=== PATIENT | female | born 1960 | race Caucasian/White ===

== ENCOUNTER 2020-01-20 21:00 | Inpatient (IN) ==
[2020-01-20] MEDS ORDERED: PROMETHAZINE 12.5 MG/50.5 ML BAG IV STA (22:36)
[2020-01-20 22:45] LABS: Hematocrit (blood only) 31.7 % (37-47); Hemoglobin 9.6 g/dL (12.0-16.0); Mean Corpuscular Hemoglobin 24.1 pg (25-34); Mean Corpuscular Hgb Conc 30.3 g/dL (32-36); Mean Corpuscular Volume 79.4 fL (80-100); Platelet Count 557 K/uL (130-400); RDW Coefficient of Variation 17.9 % (11.5-14.5); Red Blood Count 3.99 M/uL (4.2-5.4); White Blood Count 8.25 K/uL (4.8-10.8)
[2020-01-20] MEDS ORDERED: SODIUM CHLORIDE 0.9% 1000ML 1,000 ML IV SCH (22:45)
[2020-01-20 22:52] LABS: Albumin Level 3.1 gm/dl (3.4-5.0); BUN Creatinine Ratio 14.2 (10-20); Calcium 8.8 mg/dl (8.5-10.1); Creatinine Clr Calc Pharmacy 50.7 ml/min; Est GFR (African American) 54.3; Est GFR (Non-African American) 46.8; Potassium 3.8 mmol/L (3.5-5.1)
[2020-01-20 22:55] LABS: Albumin Globulin Ratio 0.7 (0.9-2); Globulin 4.3 gm/dl (2.5-4.0); Total Protein 7.4 gm/dl (6.4-8.2)
[2020-01-20 23:32] LABS: Immature Granulocytes # (auto) 0.07 K/uL (0.00-0.02); Immature Granulocytes % (auto) 0.8 %; Lymphocytes # (auto) 0.13 K/uL (1.2-3.4); Lymphocytes % (auto) 1.6 %; Monocytes # (auto) 0.06 K/uL (0.11-0.59); Monocytes % (auto) 0.7 %; Neutrophils # (auto) 7.99 K/uL (1.4-6.5); Neutrophils % (auto) 96.9 %; RBC Morphology Unremarkable
[2020-01-21] MEDS ORDERED: IOVERSOL 100ml IV ONE
[2020-01-21] MEDS ORDERED: SODIUM CHLORIDE 0.9% 1000ML 1,000 ML IV ONE (00:30)
[2020-01-21] MEDS ORDERED: cefTRIAXone SODIUM 2,000 MG/70 ML BAG IV STA (00:48)
[2020-01-21 00:52] LABS: Appearance Urine Cloudy (Clear); Bacteria Urine Automated 3+ (Negative); Bilirubin Urine Negative (Negative); Blood Urine 3+ (Negative); Color Urine Dark Yellow; Glucose Urine UA Negative (Negative); Ketones Urine Trace (Negative); Leukocyte Esterase Urine 3+ (Negative); Nitrite Urine Positive (Negative); Protein Urine 2+ (Negative); Specific Gravity Urine 1.015 (1.000-1.030); Urobilinogen Urine Negative (Negative); WBC Urine Automated >30 /hpf (0-5)
[2020-01-21 01:05] LABS: RBC Urine Automated >30 /hpf (0-4)
[2020-01-21 01:06] LABS: Cast Urine Automated 0 /lpf (0-5)
[2020-01-21] MEDS ORDERED: PROMETHAZINE 12.5 MG/50.5 ML NSS IV ONE (01:38)
--- NOTE | 2020-01-21 01:45 | Emergency Department Note ---
History of Present Illness General Chief complaint: Vomiting Stated complaint: VOMITING,PAINS IN BACK Source: patient and RN notes reviewed Mode of arrival: ambulatory Limitations: no limitations History of Present Illness Provider complaint: Vomiting, diarrhea, back pain Maximum Pain Intensity: 3 This patient is a 59-year-old female who presents emergency department with complaints of vomiting and diarrhea that began 1 day ago. The patient states she has had some sweats and chills. She has had some watery stools. She believes she is dehydrated because the urine has been dark. Patient denies any blood in the vomit or stools. She states she was tested for COVID approximately 2 weeks ago and was negative. Patient denies any chest pain, shortness of breath or cough. She does feel as though she is had a fever. Home Medications Home Medications Medication Instructions Recorded Confirmed Type No Known Home Medications 01/21/20 01/21/20 History Allergies Allergy/AdvReac Type Severity Reaction Status Date / Time ondansetron [From Zofran] AdvReac Unknown Vomiting Verified 01/31/19 08:15 Past Med/Surg History Medical History Endometrial thickening on ultrasound History of anesthesia reaction WITH GASTRIC BYPASS SURGERY, TOOK LONG TIME TO WAKE UP ( JULIÁN, 2011) History of chest pain October 10, 2018...chest pain, dizziness & nausea...rested and resolved - no re- occurence since History of high cholesterol History of kidney stones x1 History of varicella Pain, lower extremity "HIPS TO FEET HURTING" STARTED 1 YR AGO/WORSENING OVER LAST 2 MONTHS Post-menopausal bleeding Postmenopausal bleeding Surgical History History of colonoscopy History of eye surgery LASIK - BOTH History of gastric bypass History of tubal ligation History of wisdom tooth extraction S/P laparoscopic cholecystectomy Family History Other Family history of cancer Social History Smoking Status: Never smoker Hx Alcohol Use: No Preferred Language: Frisian Communication Ability: Effective 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 and A total of 10 systems reviewed and were otherwise negative Physical Exam Vital Signs Vital Signs - 24 hr 01/20/20 21:09 01/20/20 22:47 01/20/20 22:54 Temperature 37 C Temperature Source Oral Pulse Rate 91 H Pulse Rate [Finger] 91 H Respiratory Rate 18 18 Respiratory Effort / Characteristics Non-Labored Non-Labored Spontaneous Respiratory Depth Normal Normal Blood Pressure 119/61 Blood Pressure [Left Arm] 119/73 Blood Pressure Mean 80 Blood Pressure Mean [Left Arm] 88 Pulse Oximetry 100 97 97 Oxygen Delivery Method Room Air Room Air Room Air Sepsis Recent Fever Within 48 Hours No Sepsis New/Unexplained Change in Mental Status No Sepsis Action Taken by Nursing No Action Required 01/21/20 00:32 01/21/20 01:10 01/21/20 01:35 Temperature 38.5 C H Temperature Source Oral Pulse Rate Pulse Rate [Finger] 97 H 98 H Respiratory Rate 18 18 Respiratory Effort / Characteristics Non-Labored Spontaneous Non-Labored Spontaneous Respiratory Depth Normal Normal Blood Pressure Blood Pressure [Left Arm] 121/62 113/99 Blood Pressure Mean Blood Pressure Mean [Left Arm] 81 103 Pulse Oximetry 98 98 Oxygen Delivery Method Room Air Room Air Sepsis Recent Fever Within 48 Hours Sepsis New/Unexplained Change in Mental Status Sepsis Action Taken by Nursing 01/21/20 02:16 Temperature Temperature Source Pulse Rate 120 H Pulse Rate [Finger] Respiratory Rate 18 Respiratory Effort / Characteristics Respiratory Depth Blood Pressure 148/132 H Blood Pressure [Left Arm] Blood Pressure Mean Blood Pressure Mean [Left Arm] Pulse Oximetry 97 Oxygen Delivery Method Room Air Sepsis Recent Fever Within 48 Hours Sepsis New/Unexplained Change in Mental Status Sepsis Action Taken by Nursing Vital signs reviewed. General: Somewhat ill appearing 59 yo female, in no significant distress. HEENT: No scleral icterus, PERRLA, neck supple. Cardiovascular: Regular rate and rhythm, no extra sounds. Pulmonary: Clear to auscultation bilaterally, normal work of breathing. Abdomen: Soft, nontender, nondistended, positive bowel sounds. Musculoskeletal: Atraumatic, no peripheral edema. Neurologic: Patient awake alert and oriented x 3 Skin: Warm, dry, no rash Course Administered Medications Discontinued Medications Acetaminophen (Acetaminophen 1000 Mg/100 Ml Iv) Confirm Administered Dose 1,000 mg IV .STK-MED ONE Stop: 01/21/20 01:47 Last Admin: 01/21/20 01:49 Dose: 1,000 mg Documented by: [id number] Promethazine HCl (Phenergan) 12.5 mg in 50.5 mls @ 202 mls/hr IV NOW STA Stop: 01/20/20 22:50 Last Infusion: 01/20/20 23:01 Dose: 0 mls/hr Documented by: [id number] Admin: 01/20/20 22:46 Dose: 202 mls/hr Documented by: [id number] Sodium Chloride (Nss 1000ml) 1,000 mls @ 999 mls/hr IV .Q1H1M ARAM Stop: 01/20/20 23:45 Last Infusion: 01/20/20 23:51 Dose: 0 mls/hr Documented by: [id number] Admin: 01/20/20 22:46 Dose: 999 mls/hr Documented by: [id number] Sodium Chloride (Nss 1000ml) 1,000 mls @ 999 mls/hr IV .Q1H1M ONE Stop: 01/21/20 01:30 Last Admin: 01/21/20 00:49 Dose: 999 mls/hr Documented by: [id number] Ceftriaxone Sodium (Rocephin) 2,000 mg in 70 mls @ 140 mls/hr IV NOW STA Stop: 01/21/20 01:17 Last Infusion: 01/21/20 01:44 Dose: 0 mls/hr Documented by: [id number] Admin: 01/21/20 01:10 Dose: 140 mls/hr Documented by: [id number] Ioversol (Ioversol 100ml) 94 ml IV ONCE ONE Stop: 01/21/20 00:01 Last Admin: 01/21/20 00:00 Dose: 94 ml Documented by: [id number] Promethazine HCl (Promethazine 12.5 Mg/50.5 Ml Nss) Confirm Administered Dose 12.5 mg IV .STK-MED ONE Stop: 01/21/20 01:39 Last Admin: 01/21/20 01:45 Dose: 12.5 mg Documented by: [id number] Critical Care Time Critical Care Time: Yes I have personally spent greater than 42 minutes of critical care time in the direct management of this patient. This includes bedside care, interpretation of diagnostic studies, and testing, discussion with consultants, patient, and family members, and other required patient management activities. This 42 minutes is in excess of all separately billable procedures. Medical Decision Making Differential Diagnosis Differential diagnosis: Etiologies such as viral syndrome, otitis, pharyngitis, pneumonia, influenza, meningitis, urinary tract infection, septic arthritis, soft tissue infectious process, intra-abdominal process, sepsis, bacteremia, as well as others were entertained. Medical Records Attestation: I reviewed the patient's medical records. Home Medications Current Medication List: was personally reviewed by me Laboratory Data Attestation: I reviewed the patient's lab results. Result diagrams: 01/20/20 21:25 01/20/20 21:25 Lab Results 01/20/20 01/20/20 01/20/20 Range/Units 21:25 21:25 22:05 WBC 8.25 (4.8-10.8) K/uL RBC 3.99 L (4.2-5.4) M/uL Hgb 9.6 L (12.0-16.0) g/dL Hct 31.7 L (37-47) % MCV 79.4 L (80-100) fL MCH 24.1 L (25-34) pg MCHC 30.3 L (32-36) g/dL RDW Std Deviation 52.0 H (36.4-46.3) fL RDW Coeff of Mary 17.9 H (11.5-14.5) % Plt Count 557 H (130-400) K/uL MPV 10.0 (7.4-10.4) fL Immature Gran % (Auto) 0.8 % Neut % (Auto) 96.9 % Lymph % (Auto) 1.6 % Talbot % (Auto) 0.7 % Eos % (Auto) 0.0 % Baso % (Auto) 0.0 % Neut # (Auto) 7.99 H (1.4-6.5) K/uL Lymph # (Auto) 0.13 L (1.2-3.4) K/uL Talbot # (Auto) 0.06 L (0.11-0.59) K/uL Eos # (Auto) 0.00 (0-0.5) K/uL Baso # (Auto) 0.00 (0-0.2) K/uL Immature Gran # (Auto) 0.07 H (0.00-0.02) K/uL RBC Morphology Unremarkable Sodium 138 (136-145) mmol/L Potassium 3.8 (3.5-5.1) mmol/L Chloride 105 (98-107) mmol/L Carbon Dioxide 22 (21-32) mmol/L Anion Gap 11.0 (3-11) BUN 18 (7-18) mg/dl Creatinine 1.27 H (0.6-1.2) mg/dl Est Cr Clr Drug Dosing 50.7 ml/min Est GFR ( Amer) 54.3 Est GFR (Non-Af Amer) 46.8 BUN/Creatinine Ratio 14.2 (10-20) Glucose 109 H (70-99) mg/dl Lactate (0.4-2.0) mmol/L Calcium 8.8 (8.5-10.1) mg/dl Total Bilirubin 1.0 (0.2-1) mg/dl AST 59 H (15-37) U/L ALT 41 (12-78) U/L Alkaline Phosphatase 151 H (45-117) U/L Total Protein 7.4 (6.4-8.2) gm/dl Albumin 3.1 L (3.4-5.0) gm/dl Globulin 4.3 H (2.5-4.0) gm/dl Albumin/Globulin Ratio 0.7 L (0.9-2) Lipase 79 (73-393) U/L Urine Color Dark Yellow Urine Appearance Cloudy A (Clear) Urine pH 5.0 (4.5-7.5) Ur Specific [place] 1.015 (1.000-1.030) Urine Protein 2+ H (Negative) Urine Glucose (UA) Negative (Negative) Urine Ketones Trace H (Negative) Urine Blood 3+ H (Negative) Urine Nitrite Positive A (Negative) Urine Bilirubin Negative (Negative) Urine Urobilinogen Negative (Negative) Ur Leukocyte Esterase 3+ H (Negative) Urine WBC (Auto) >30 H (0-5) /hpf Urine RBC (Auto) >30 H (0-4) /hpf U Hyaline Cast (Auto) 0 (0-5) /lpf U Epithel Cells (Auto) 10-20 H (0-5) /lpf Urine Bacteria (Auto) 3+ H (Negative) Urine Yeast Not Reportable Stl C. diff Tox B Gene (Neg) COVID-19 Eval Order COVID-19 PCR (Negative) 01/21/20 01/21/20 01/21/20 Range/Units 00:40 00:40 01:05 WBC (4.8-10.8) K/uL RBC (4.2-5.4) M/uL Hgb (12.0-16.0) g/dL Hct (37-47) % MCV (80-100) fL MCH (25-34) pg MCHC (32-36) g/dL RDW Std Deviation (36.4-46.3) fL RDW Coeff of Mary (11.5-14.5) % Plt Count (130-400) K/uL MPV (7.4-10.4) fL Immature Gran % (Auto) % Neut % (Auto) % Lymph % (Auto) % Talbot % (Auto) % Eos % (Auto) % Baso % (Auto) % Neut # (Auto) (1.4-6.5) K/uL Lymph # (Auto) (1.2-3.4) K/uL Talbot # (Auto) (0.11-0.59) K/uL Eos # (Auto) (0-0.5) K/uL Baso # (Auto) (0-0.2) K/uL Immature Gran # (Auto) (0.00-0.02) K/uL RBC Morphology Sodium (136-145) mmol/L Potassium (3.5-5.1) mmol/L Chloride (98-107) mmol/L Carbon Dioxide (21-32) mmol/L Anion Gap (3-11) BUN (7-18) mg/dl Creatinine (0.6-1.2) mg/dl Est Cr Clr Drug Dosing ml/min Est GFR ( Amer) Est GFR (Non-Af Amer) BUN/Creatinine Ratio (10-20) Glucose (70-99) mg/dl Lactate 1.8 (0.4-2.0) mmol/L Calcium (8.5-10.1) mg/dl Total Bilirubin (0.2-1) mg/dl AST (15-37) U/L ALT (12-78) U/L Alkaline Phosphatase (45-117) U/L Total Protein (6.4-8.2) gm/dl Albumin (3.4-5.0) gm/dl Globulin (2.5-4.0) gm/dl Albumin/Globulin Ratio (0.9-2) Lipase (73-393) U/L Urine Color Urine Appearance (Clear) Urine pH (4.5-7.5) Ur Specific [place] (1.000-1.030) Urine Protein (Negative) Urine Glucose (UA) (Negative) Urine Ketones (Negative) Urine Blood (Negative) Urine Nitrite (Negative) Urine Bilirubin (Negative) Urine Urobilinogen (Negative) Ur Leukocyte Esterase (Negative) Urine WBC (Auto) (0-5) /hpf Urine RBC (Auto) (0-4) /hpf U Hyaline Cast (Auto) (0-5) /lpf U Epithel Cells (Auto) (0-5) /lpf Urine Bacteria (Auto) (Negative) Urine Yeast Stl C. diff Tox B Gene (Neg) COVID-19 Eval Order Covid19 Done at [facility] COVID-19 PCR NEGATIVE (Negative) 01/21/20 Range/Units 01:45 WBC (4.8-10.8) K/uL RBC (4.2-5.4) M/uL Hgb (12.0-16.0) g/dL Hct (37-47) % MCV (80-100) fL MCH (25-34) pg MCHC (32-36) g/dL RDW Std Deviation (36.4-46.3) fL RDW Coeff of Mary (11.5-14.5) % Plt Count (130-400) K/uL MPV (7.4-10.4) fL Immature Gran % (Auto) % Neut % (Auto) % Lymph % (Auto) % Talbot % (Auto) % Eos % (Auto) % Baso % (Auto) % Neut # (Auto) (1.4-6.5) K/uL Lymph # (Auto) (1.2-3.4) K/uL Talbot # (Auto) (0.11-0.59) K/uL Eos # (Auto) (0-0.5) K/uL Baso # (Auto) (0-0.2) K/uL Immature Gran # (Auto) (0.00-0.02) K/uL RBC Morphology Sodium (136-145) mmol/L Potassium (3.5-5.1) mmol/L Chloride (98-107) mmol/L Carbon Dioxide (21-32) mmol/L Anion Gap (3-11) BUN (7-18) mg/dl Creatinine (0.6-1.2) mg/dl Est Cr Clr Drug Dosing ml/min Est GFR ( Amer) Est GFR (Non-Af Amer) BUN/Creatinine Ratio (10-20) Glucose (70-99) mg/dl Lactate (0.4-2.0) mmol/L Calcium (8.5-10.1) mg/dl Total Bilirubin (0.2-1) mg/dl AST (15-37) U/L ALT (12-78) U/L Alkaline Phosphatase (45-117) U/L Total Protein (6.4-8.2) gm/dl Albumin (3.4-5.0) gm/dl Globulin (2.5-4.0) gm/dl Albumin/Globulin Ratio (0.9-2) Lipase (73-393) U/L Urine Color Urine Appearance (Clear) Urine pH (4.5-7.5) Ur Specific [place] (1.000-1.030) Urine Protein (Negative) Urine Glucose (UA) (Negative) Urine Ketones (Negative) Urine Blood (Negative) Urine Nitrite (Negative) Urine Bilirubin (Negative) Urine Urobilinogen (Negative) Ur Leukocyte Esterase (Negative) Urine WBC (Auto) (0-5) /hpf Urine RBC (Auto) (0-4) /hpf U Hyaline Cast (Auto) (0-5) /lpf U Epithel Cells (Auto) (0-5) /lpf Urine Bacteria (Auto) (Negative) Urine Yeast Stl C. diff Tox B Gene Negative Cdiff Gene (Neg) COVID-19 Eval Order COVID-19 PCR (Negative) Imaging Data Radiologist's Impression: CT ABDOMEN & PELVIS With Contrast: Comparison: 12/23/2008. Normal cardiac size. Mild posterior dependent atelectasis. Remainder of the lung bases are clear. Status post cholecystectomy otherwise unremarkable biliary system. Normal spleen, bilateral adrenal glands and visualized pancreas. Decompressed stomach with surgical clips suggestive of previous surgery. Mild to moderate hydronephrosis and hydroureter due to a stone seen at the right UV junction measuring 4.9 mm. There is a stone measuring 6.2 mm at the level of the renal pelvis with a second stone was seen within the lower pole of the left kidney measuring 5.5 mm. There are multiple left-sided peripelvic renal cysts versus extrarenal pelvis versus mild pelviectasis. No hydroureter on the left. Multiple loops of small bowel within the pelvis, largest distended up to 2.4 cm which may indicate localized ileus. Due to a adjacent small bowel loops with surgical clips noted, early signs of mild or partial obstruction cannot be entirely excluded. Distinct appendix is not visualized with no inflammation in the region of the cecum. Multiple surgical screws demonstrated within conglomerates of small bowel seen at the level of the pelvis. Normal aorta. Unremarkable bony structures. Unremarkable uterus and remainder of the pelvic structures for age. Radiologist: Irina Truong MD Blood Pressure Blood Pressure Findings: Normal blood pressure Blood Pressure Disposition: did not require urgent referral MDM Narrative This patient was evaluated and appeared to be in some discomfort. IV access was obtained and laboratory work was drawn. The patient was medicated with IV Phenergan 12.5 mg and hydrated with normal saline solution. An order for cardiac monitoring was placed and the patient was found to be in a normal sinus rhythm at 91 bpm. Patient's laboratory work reveals a normal WBC at 8.25. Lactate is 1.8. Blood cultures are pending. Patient continued to complain of some crampy mid abdominal discomfort. CT imaging was ordered and concerning for an obstructing 5 mm right UVJ stone. She was finally able to urinate after IV hydration and is found to have a UTI. 2 g of IV ceftriaxone were administered. The case was discussed with Dr. Montiel of urology who will evaluate the patient in the emergency department. Dr. Rangel of the hospitalist service will evaluate the patient for admission and further management. Patient is aware of the plan and agrees. Impression & Plan Hydronephrosis with renal and ureteral calculous obstruction, UTI (urinary tract infection), Fever Discharge Plan Visit Data Chief Complaint: Vomiting Stated Complaint: VOMITING,PAINS IN BACK ED Provider: Hilary Pulliam Discharge Problem: Hydronephrosis with renal and ureteral calculous obstruction, UTI (urinary tract infection), Fever Patient Disposition: Still a Patient Discharge Instructions Interventions: ED Discharge Assessment Last Done: 01/21/20 02:16
[2020-01-21] MEDS ORDERED: ACETAMINOPHEN 1000 MG/100 ML IV IV ONE (01:46)
--- NOTE | 2020-01-21 02:08 | Urology Consultation ---
Date of Consultation January 21, 2020 Assessment & Plan (1) Nephrolithiasis: (2) Sepsis: Obstructing right ureteral calculus with a clinical picture consistent with sepsis Plan to immediately progressed to the operating room for a right ureteral stent placement and cystoscopy She has numerous other issues currently as well COVID testing pending currently Empiric antibiotic coverage IV hydration Admission to the hospital service after stent placement History of Present Illness History of Present Illness Acutely ill 59-year-old female evaluated in the emergency room She presented earlier in the evening with a variety of complaints This has progressed since her admission to what appears to sepsis She is visibly shaking she has had diarrhea and vomiting She has abdominal pain objective measurements have shown a fever of 38.[address] showing a distal right ureteral calculus with moderate hydronephrosis, several renal stones UA showing signs of active infection She additionally has a COVID test which is currently pendingof note, she is saturating 98% on room air and not manifesting a lot of pulmonary symptoms She has a history of kidney stones but no prior surgeries for kidney stones Allergies Allergy/AdvReac Type Severity Reaction Status Date / Time ondansetron [From Zofran] AdvReac Unknown Vomiting Verified 01/31/19 08:15 Patient History Medical History Endometrial thickening on ultrasound History of anesthesia reaction WITH GASTRIC BYPASS SURGERY, TOOK LONG TIME TO WAKE UP ( JULIÁN, 2011) History of chest pain October 10, 2018...chest pain, dizziness & nausea...rested and resolved - no re- occurence since History of high cholesterol History of kidney stones x1 History of varicella Pain, lower extremity "HIPS TO FEET HURTING" STARTED 1 YR AGO/WORSENING OVER LAST 2 MONTHS Post-menopausal bleeding Postmenopausal bleeding Surgical History History of colonoscopy History of eye surgery LASIK - BOTH History of gastric bypass History of tubal ligation History of wisdom tooth extraction S/P laparoscopic cholecystectomy Family History Other Family history of cancer Social History Smoking Status: Never smoker Hx Alcohol Use: No Preferred Language: Bangladeshi Communication Ability: 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 Household Appliances Required: No Beliefs That Will Affect Care: None Current Living Situation: Alone Feels Safe at Home: Yes Assistive Devices: None Review of Systems Constitutional: + fever, + chills, + fatigue and + weakness Eyes: no worsening vision Ear, Nose, Mouth, Throat: no facial pain and no pain with swallowing Respiratory: no cough and no dyspnea Cardiovascular: no chest pain and no palpitations Gastrointestinal: + abdominal pain, + nausea, + vomiting and + diarrhea/loose stools Genitourinary: + dysuria and + urinary frequency; no difficulty urinating and no hematuria Musculoskeletal: + back pain Integumentary: no rash and no urticaria Neurologic: no gait abnormality and no unsteadiness Psychiatric: no behavioral changes and no depression Endocrine: no fatigue Physical Exam Constitutional: + acute distress and + ill appearing Acutely uncomfortable appearing with severe rigors Neck: neck nontender Respiratory: normal respiratory effort; no respiratory distress and does not use accessory muscles Cardiovascular: Rate/Rhythm: + tachycardic Vessels: radial pulses present Extremities: no edema Gastrointestinal (Abdomen): Inspection/Auscultation: abdomen normal to inspection Percussion/Palpation: + abdomen tender and abdomen soft; no guarding Musculoskeletal: Head/Neck/Chest: normocephalic and head atraumatic Extremities: extremities normal to inspection Skin: no rashes and no lesions Trauma: no evidence of skin trauma Neurologic: awake; not obtunded Speech / Cognition: normal speech Motor/Sensory: no tremor Psychiatric: Orientation: alert and oriented x 3 Lymphatic: no lymphadenopathy Results & Data ([facility]) Vital Signs (Past 12 Hours) Vital Signs Temp Pulse Pulse Resp BP BP Pulse Ox 01/21/20 01:10 38.5 C H 01/21/20 00:32 97 H 18 121/62 98 01/20/20 22:54 91 H 18 119/73 97 01/20/20 22:47 97 01/20/20 21:09 37 C 91 H 18 119/61 100 PG Care Time/CCT Total # of Minutes Spent Total Time Spent with Patient: Total time spent is greater than 50% in coordination of care (as documented) at patient's floor/unit and/or counseling patient: Coding Level of Care Code 95186 Office/OBS Consult Lvl 4 Diagnoses Nephrolithiasis N20.0 Sepsis A41.9
[2020-01-21] MEDS ORDERED: ATROPINE SULFATE 0.1 MG/ML 10ML SYR IV PRN (02:20)
[2020-01-21] MEDS ORDERED: fentaNYL citrate 100 MCG/2 ML VIAL IV PRN (02:20)
[2020-01-21] MEDS ORDERED: ePHEDrine sulfate 50 MG/ML AMP IV PRN (02:20)
[2020-01-21] MEDS ORDERED: MIDAZOLAM HCL 1 MG/ML 2ML VIAL ONE (02:26)
[2020-01-21] MEDS ORDERED: fentaNYL citrate 100 MCG/2 ML VIAL ONE (02:26)
--- NOTE | 2020-01-21 02:34 | Anesthesiology Consultation ---
Date of Service January 21, 2020 Assessment & Plan (1) Encounter for pre-operative examination: Chart Review Chart Review: Acceptable Risk for Surgery Consults Requested none ASA [id number] Proposed Anesthesia Anesthesia Type: MAC Risk / Benefits Reviewed With: PT / POA / Parent / Guardian, Accepts Plan and Informed Consent Obtained History Surgery Operation Date: 01/21/20 03:00 Proposed Procedures p Cystoscopy - Sukhdeep Montiel MD Height/Weight Height: 5 ft 1 in Weight: 92.5 kg Allergies Allergy/AdvReac Type Severity Reaction Status Date / Time ondansetron [From Zofran] AdvReac Unknown Vomiting Verified 01/31/19 08:15 Medications Home Medications Medication Instructions Recorded Confirmed Last Taken No Known Home Medications 01/21/20 01/21/20 Unknown NPO Date Last Intake of Fluids: 01/20/20 Time Last Intake of Fluids: 11:00 Date Last Intake of Solids: 01/20/20 Time Last Intake of Solids: 17:00 Past Medical History Medical History Endometrial thickening on ultrasound History of anesthesia reaction WITH GASTRIC BYPASS SURGERY, TOOK LONG TIME TO WAKE UP ( JULIÁN, 2011) History of chest pain October 10, 2018...chest pain, dizziness & nausea...rested and resolved - no re- occurence since History of high cholesterol History of kidney stones x1 History of varicella Pain, lower extremity "HIPS TO FEET HURTING" STARTED 1 YR AGO/WORSENING OVER LAST 2 MONTHS Post-menopausal bleeding Postmenopausal bleeding Exercise / Class Metabolic Activity II 4-5 Yardwork/Stairs/Walk up hill Past Family History Family History Other Family history of cancer Past Surgical History Surgical History History of colonoscopy History of eye surgery LASIK - BOTH History of gastric bypass History of tubal ligation History of wisdom tooth extraction S/P laparoscopic cholecystectomy Past Anesthesia History No Hx of Anesthesia Complications and No Family Hx of Anesthesia Complications History of PONV No Hx of PONV and No Hx of Motion Sickness Social History Smoking Status: Never smoker Hx Alcohol Use: No Alcohol type: wine alcohol intake frequency: other substance use type: does not use Physical Exam Vital Signs Last Vital Signs Temp 101.3 F H 01/21/20 01:10 Pulse 120 H 01/21/20 02:16 Resp 18 01/21/20 02:16 BP 148/132 H 01/21/20 02:16 Pulse Ox 97 01/21/20 02:16 ENMT Mouth: + loose teeth Thyromental Distance: > or= 3.5 Finger Breadths Mallampati Class: II Neck normal visual inspection Respiratory normal respiratory effort Auscultation: lungs clear to auscultation bilaterally Cardiovascular Rate/Rhythm: regular rhythm and + tachycardic Testing Laboratory Results 01/20/20 21:25 01/20/20 21:25 Urine Color Dark Yellow 01/20/20 22:05 Urine Appearance Cloudy (Clear) A 01/20/20 22:05 Urine pH 5.0 (4.5-7.5) 01/20/20 22:05 Ur Specific [place] 1.015 (1.000-1.030) 01/20/20 22:05 Urine Protein 2+ (Negative) H 01/20/20 22:05 Urine Glucose (UA) Negative (Negative) 01/20/20 22:05 Urine Ketones Trace (Negative) H 01/20/20 22:05 Urine Nitrite Positive (Negative) A 01/20/20 22:05 Ur Leukocyte Esterase 3+ (Negative) H 01/20/20 22:05 Urine WBC (Auto) >30 /hpf (0-5) H 01/20/20 22:05 Urine RBC (Auto) >30 /hpf (0-4) H 01/20/20 22:05 U Hyaline Cast (Auto) 0 /lpf (0-5) 01/20/20 22:05 U Epithel Cells (Auto) 10-20 /lpf (0-5) H 01/20/20 22:05 Urine Bacteria (Auto) 3+ (Negative) H 01/20/20 22:05
--- NOTE | 2020-01-21 03:08 | Operative Report ---
PG Post Operative Report Pre & Post Diagnosis Operation Date: 01/21/20 03:00 Pre-Op Diagnosis: Obstructing Right Ureteral Calculus; Sepsis Post-Op Diagnosis: Obstructing Right Ureteral Calculus; Sepsis I identified the patient and participated in the time-out.: Yes Procedure Operation Date: 01/21/20 03:00 Actual Procedures p Cystoscopy, Right Ureteral Stent Placement, Stone Extraction(Right) - Sukhdeep Montiel MD Surgeon Petar Montiel MD Building Drafter none Estimated Blood Loss 0 Findings Consistent with Post-Op Diagnosis Specimens stone for chemical analysis Description of Procedure The patient was identified in the preoperative holding area, appropriate informed consents were reviewed and completed and the patient was transferred to the operative suite. Upon arrival, appropriate antibiotics and anesthesia were administered and the patient was placed in dorsal lithotomy position and prepped and draped in sterile fashion. To begin the case I passed a 22 [place] cystoscope with 30 degree lens. Immediately upon entry into the bladder I drained a significant amount of dark brown cloudy urine. I irrigated the bladder multiple times to allow better visualization. After clearing the urine, the bladder was inspected. There were no gross abnormalities appreciated. She had some mounding of the right distal ureter and UO. No tumors or stones were appreciated within the bladder. I intubated the right UO with a sensor wire and a 5 [place] open-ended catheter and in doing so freed a stone that was impacted just behind the UO. The stone actually popped into the bladder and was easily visualized. I continued to place a 6 [place] by 24 cm double-J stent seeing a good curl in the kidney as wel l as the bladder. I then irrigated the stone out of the bladder and passed off the table for chemical analysis. The case was concluded and she was reversed of anesthesia and taken to the recovery area in stable condition. There were no complications. I attest to the content of the Intraoperative Record and any orders documented therein. Any exceptions are noted below.
--- NOTE | 2020-01-21 03:37 | Anesthesiology Progress Note ---
Date of Service January 21, 2020 Anesthesia Post Procedure Vital Signs Vital Signs: Temp Pulse Pulse Resp BP BP Pulse Ox 01/21/20 03:20 103 H 32 H 136/83 93 01/21/20 03:18 106 H 31 H 154/82 H 93 01/21/20 03:15 103 H 31 H 141/85 H 93 01/21/20 03:10 106 H 31 H 154/82 H 93 01/21/20 03:05 103.1 F H 112 H 29 H 175/87 H 94 01/21/20 02:16 120 H 18 148/132 H 97 01/21/20 01:35 98 H 18 113/99 98 01/21/20 01:10 101.3 F H 01/21/20 00:32 97 H 18 121/62 98 01/20/20 22:54 91 H 18 119/73 97 01/20/20 22:47 97 01/20/20 21:09 98.6 F 91 H 18 119/61 100 Pain Intensity Abdomen: Pain Intensity: 5 Transfer of Care Handoff Completed per policy Notes Mental Status: alert / awake / arousable and participated in evaluation Patient Amnestic to Procedure: Yes Nausea / Vomiting: adequately controlled Pain: adequately controlled Airway Patency, RR, SpO2: stable & adequate BP & HR: stable & adequate Hydration State: stable & adequate Anesthetic Complications: no major complications apparent and Pt Satisfied with anesthetic care
[2020-01-21] MEDS ORDERED: NITROGLYCERIN SL 0.4 MG/TAB TAB SL PRN (03:59)
[2020-01-21] MEDS ORDERED: PIPERACILL/TAZOBAC CONSULT ACTIVE PRN (03:59)
[2020-01-21] MEDS ORDERED: PIPERACILLIN/TAZOBACTAM 4.5 GM in DEXTROSE 5% 100 ML IV ONE (04:15)
[2020-01-21] MEDS: SODIUM CHLORIDE 0.9% 1000ML 1,000 ML IV SCH ×3 (04:17→21:01)
--- NOTE | 2020-01-21 06:24 | History and Physical Report ---
DATE OF ADMISSION: 01/21/2020 CHIEF COMPLAINT: Sepsis, obstructive kidney stone, UTI HISTORY OF PRESENT ILLNESS: This is a 59-year-old female with past medical history significant for status post gastric bypass surgery for obesity, family history of diabetes, comes because of nausea, vomiting, abdominal pain going for about 1 day. She had several episodes vomiting and diarrhea in the ER, later she had a temp spike. There is no leukocytosis, but there is a lymphopenia. Lactate was normal at 1.8. Her urine came as positive leukocyte esterase, positive nitrate and +[address] scan of the abdomen and pelvis showed [id number] hydronephrosis and hydroureter due to stones in the right UV junction measuring 4.9 mm and stones on the left kidney. The patient is very shaky and having lot of chills when I saw the patient and she was not able to answer most of the questions. Already Urology was called by the ER and Dr. Montiel came to take her to the OR. The patient says no loss of sense of smell or taste. May be has some runny nose. She has some dry cough in the ER. Denies any shortness of breath. Denies any chest pain. Complains of abdominal pain. No swelling in the legs seen. Ambulated okay in the ER. ALLERGIES: ZOFRAN. PAST MEDICAL HISTORY: As mentioned above. PAST SURGICAL HISTORY: Colonoscopy, EGD, laparoscopic procedure of liver, laparoscopic gastric bypass surgery, laparoscopic cholecystectomy, ligation of oviducts. MEDICATIONS: As per the [facility], she is on meclizine 25 mg p.o. t.i.d. p.r.n., vitamin B12 1000 mcg injections every 30 days, Caltrate plus vitamin D 1 tablet b.i.d., Flintstones once daily. FAMILY HISTORY: Significant for mother had diabetes. Father had heart disorder. Daughter has ovarian cancer. SOCIAL HISTORY: No smoking. Alcohol occasional. No drug use. REVIEW OF SYSTEMS: As per HPI, could not get to complete review of systems since the patient seems to be very shaky and chills. Somewhat lethargic. PHYSICAL EXAMINATION: VITAL SIGNS: Temperature T-max 37.5, pulse 103, respiratory rate in 20s and 30s, blood pressure 136/83, oxygen 93% on room air. HEENT: Pupils equal, round, reactive to light. NECK: No neck masses seen. CARDIOVASCULAR: S1, S2 heard. Tachycardia. No murmurs. RESPIRATORY SYSTEM: Normal AP diameter. No accessory muscle use. No wheezing, no crackles. ABDOMEN: Soft, bowel sounds present. No distention, no guarding. CENTRAL NERVOUS SYSTEM: The patient is alert and awake. Obeys commands. Ambulated to the ER okay. Moves extremities. EXTREMITIES: No edema, no erythema seen. LABORATORY DATA: WBC 8.25, hemoglobin 9.6, hematocrit 31.7, platelets 557. Sodium 138, potassium 3.8, chloride 105, bicarbonate 22, BUN 18, creatinine 1.27, serum glucose 109, lactate 1.8, calcium 8.8, total bilirubin 1, AST 15, ALT 41, alkaline phosphatase 151, lipase 79. Urinalysis positive for leukocyte esterase, +1 nitrite, +3 bacteria. COVID-19 PCR negative. Stool for C. diff negative. IMAGING: CT of abdomen and pelvis shows obstructing right UVJ junction stone at 4.9 mm on the preliminary report. ASSESSMENT AND PLAN: This is a 59-year-old female who presents with sepsis from obstructing kidney stone. 1. Sepsis from obstructing right UVJ kidney stone. The patient is taken emergently to the OR by the Urology. The patient was given Rocephin in the ER. We will continue with IV fluids, IV Zosyn. Follow the cultures and closely monitor. The patient was tested COVID 2 weeks ago and its negative. 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 COVID test was done in [facility] and came back negative. Stool for C. diff was also negative, most likely symptoms could be from the sepsis and from the urinary tract infection. We will closely monitor. 2. History of gastric bypass surgery. Follow up with the PCP. 3. Anemia and history of gastric bypass surgery. We will check for vitamin B12 and folate levels, iron studies and stool for Hemoccult and follow the labs. Dvt px scds. Disposition To be determined. MTDD
--- NOTE | 2020-01-21 07:03 | CT Scan Report ---
CT OF THE ABDOMEN AND PELVIS WITH CONTRAST CLINICAL HISTORY: Vomiting and diarrhea. Right upper quadrant pain. COMPARISON STUDY: CT of the abdomen and pelvis December 23, 2018. Pelvic ultrasound November 06, 2018. TECHNIQUE: Following IV administration of 94 mL of Optiray-320, axial images of the abdomen and pelvi s were obtained from the lung bases to the proximal femurs. Images were reviewed in the axial, sagitt al, and coronal planes. IV contrast was administered without complication. Automated exposure contro l was utilized for the study. A dose lowering technique was utilized adhering to the principles of A DAHIANA. CT DOSE: 910.63 mGy.cm FINDINGS: A 5 mm distal right ureteral calculus results in moderate right hydroureteronephrosis. The right nephrogram is delayed. Note is made of an 8 mm calcification within the left renal sinus. This favors a nonobstructing urinary calculus. There is an additional 4 mm left lower pole renal calculus. Hypodensities within left renal sinus favor parapelvic cysts. Hydronephrosis is considered less like ly. There is no evidence for a bowel obstruction status post Pascual-en-Y gastric bypass. The liver, spl een, adrenal glands and pancreas are unremarkable. Caliber of the common bile duct is at the upper li mits of normal following cholecystectomy. There is no lymphadenopathy. There is no ascites. There are no suspicious osseous lesions. IMPRESSION: 1. 5 mm distal right ureteral calculus which results in moderate hydroureteronephrosis and a delayed nephrogram. 2. Hypodensities within left renal sinus which favor parapelvic cysts. Hydronephrosis is considered l ess likely. An 8 mm calcification within the left renal sinus which is indeterminate but favors a non obstructing calculus. 4 mm left lower pole renal calculus. ACT 112: Negative or not required by law. Electronically signed by: Karsten Davies M.D. 01/21/2020 7:02 AM
--- NOTE | 2020-01-21 07:32 | Urology Progress Note ---
Date of Service January 21, 2020 Assessment & Plan (1) Right ureteral stone: 59 year-old female patient admitted with sepsis secondary to UTI and obstructing 5 mm right distal ureteral stone. -Patient status post emergent cystoscopy, right ureteral stent placement, and stone extraction by Dr. Montiel. -She is clinically progressing post procedure. -Labs reviewed, mild increase in creatinine and white count, continue to monitor. -Urine and blood cultures pending, await results. -Continue with antibiotic therapy and supportive care. Recommend total of 7-10 days antibiotic therapy based on culture results. -Okay to advance diet. -Will continue to follow while inpatient. Subjective Patient status post emergent cystoscopy overnight, right ureteral stent placement, and stone extraction by Dr. Montiel. Since procedure, patient feels "much better". Denies subjective fevers or chills since procedure. Denies nausea or vomiting. No flank or abdominal pain, does note a headache. She is unsure if she has hematuria. Does note mild urinary frequency, no urgency. She remains NPO. Chart review: Temperature this morning 37.8 Blood pressures stable Wbc 12.24 (previously 8.25) Hgb 8.0 (previously 9.6) Creatinine 1.52 (previously 1.27) Urine and blood cultures pending, currently on IV Zosyn. Denies additional urologic concerns today. Review of Systems Constitutional: as per Subjective / HPI; no chills Gastrointestinal: as per Subjective / HPI; no nausea and no vomiting Genitourinary: as per Subjective / HPI Physical Exam Constitutional: well developed and well nourished; no acute distress and not ill appearing Respiratory: normal respiratory effort and able to speak in complete sentences; no respiratory distress and no audible wheezes Gastrointestinal (Abdomen): Inspection/Auscultation: abdomen normal to inspection; abdomen not distended Percussion/Palpation: abdomen soft; abdomen nontender and no guarding Psychiatric: Orientation: alert, oriented x 3 and cooperative Affect: euthymic affect Genitourinary: no CVA tenderness Results & Data ([facility]) Vital Signs (Past 12 Hours) Vital Signs Temp Pulse Pulse Resp BP BP Pulse Ox 01/21/20 06:17 37.8 C H 100 H 16 100/63 93 01/21/20 04:54 36.7 C 101 H 22 104/67 94 01/21/20 04:00 38.2 C H 109 H 18 107/71 93 01/21/20 03:40 109 H 33 H 132/72 93 01/21/20 03:20 103 H 32 H 136/83 93 01/21/20 03:18 106 H 31 H 154/82 H 93 01/21/20 03:15 103 H 31 H 141/85 H 93 01/21/20 03:10 106 H 31 H 154/82 H 93 01/21/20 03:05 39.5 C H 112 H 29 H 175/87 H 94 01/21/20 02:16 120 H 18 148/132 H 97 01/21/20 01:35 98 H 18 113/99 98 01/21/20 01:10 38.5 C H 01/21/20 00:32 97 H 18 121/62 98 01/20/20 22:54 91 H 18 119/73 97 01/20/20 22:47 97 01/20/20 21:09 37 C 91 H 18 119/61 100 PG Care Time/CCT Total # of Minutes Spent Total Time Spent with Patient: Total time spent is greater than 50% in coordination of care (as documented) at patient's floor/unit and/or counseling patient: Coding Level of Care Code 17583 Subseq Hosp Care Lvl 2 Diagnoses Right ureteral stone N20.1
[2020-01-21 07:34] LABS: Mean Corpuscular Hemoglobin 24.1 pg (25-34); Mean Corpuscular Hgb Conc 30.8 g/dL (32-36); Mean Corpuscular Volume 78.3 fL (80-100); Mean Platelet Volume 9.8 fL (7.4-10.4); Platelet Count 336 K/uL (130-400); RDW Standard Deviation 51.5 fL (36.4-46.3); Red Blood Count 3.32 M/uL (4.2-5.4); White Blood Count 12.24 K/uL (4.8-10.8)
[2020-01-21 08:02] LABS: BUN Creatinine Ratio 13.7 (10-20); Calcium 7.9 mg/dl (8.5-10.1); Creatinine Clr Calc Pharmacy 41.6 ml/min; Est GFR (African American) 43.7; Est GFR (Non-African American) 37.7; Magnesium 1.5 mg/dl (1.8-2.4); Potassium 3.3 mmol/L (3.5-5.1)
[2020-01-21 08:07] LABS: Immature Granulocytes # (auto) 0.22 K/uL (0.00-0.02); Immature Granulocytes % (auto) 1.8 %; Lymphocytes # (auto) 0.26 K/uL (1.2-3.4); Lymphocytes % (auto) 2.1 %; Monocytes # (auto) 0.46 K/uL (0.11-0.59); Monocytes % (auto) 3.8 %; Neutrophils % (auto) 92.3 %; Toxic Vacuolation 1+
--- NOTE | 2020-01-21 08:09 | Fluoroscopy Report ---
REYNA LOZANO CLINICAL HISTORY: RT STENT PLACEMENT COMPARISON STUDY: CT of the abdomen and pelvis January 21, 2020. FLUOROSCOPY TIME: 4.1 seconds. FLUOROSCOPIC IMAGES: 1 FINDINGS: Fluoroscopy was provided during right retrograde exam. There is contrast within both collec ting systems from prior contrast enhanced CT. There is right collecting system dilatation. IMPRESSION: Fluoroscopy provided during right retrograde exam. ACT 112: Negative or not required by law. Electronically signed by: Karsten Davies M.D. 01/21/2020 8:08 AM
[2020-01-21] MEDS ORDERED: POTASSIUM CHLORIDE 20 MEQ TABCR PO ONE (09:00)
[2020-01-21] MEDS: MAGNESIUM SULFATE / D5W 1 GM/100 ML BAG IV SCH ×2 (09:26→12:47)
[2020-01-21] MEDS: POTASSIUM CHLORIDE / WTR 10 MEQ/100 ML PLCT IV SCH ×4 (09:26→12:45)
[2020-01-21 10:23] LABS: Folate (Folic Acid) 5.55 ng/ml (>5.38); Vitamin B12 > 2000 pg/ml (211-911)
[2020-01-21] MEDS: PIPERACILLIN/TAZOBACTAM 4.5 GM in DEXTROSE 5% 100 ML IV SCH ×2 (10:24→18:38)
[2020-01-21 12:42] LABS: Ferritin 33.1 ng/ml (8-388)
--- NOTE | 2020-01-21 15:24 | Hospitalist Progress Note ---
Date of Service January 21, 2020 Assessment & Plan (1) Sepsis: (2) Bacteremia: (3) Right ureteral stone: 59-year-old female with history of gastric bypass for obesity, presenting with fever, UTI. Status post cystoscopy with stone extraction 01/21/2020 Fever improving, white count up to 12.2 Blood cultures gram-negative bacilli x2 bottles Urine culture pending Continue Zosyn Follow-up cultures Acute renal failure, likely secondary to obstructive uropathy, sepsis Hopefully with stone extraction, treatment of sepsis, kidney function will start to improve Continue IV NSS Monitor BUN/creatinine Iron deficiency anemia Iron level 6 Vitamin B12 and folate normal Start ferrous sulfate 325 twice daily Check fecal occult blood test Monitor hemoglobin History of gastric bypass surgery Presently anemic May need GI consultation if fecal blood test is negative DVT prophylaxis SCDs for now in light of possible GI bleed Disposition Lives at home with family Anticipate discharge to home when medically stable Admission and Anticipated Discharge Date Admission Date: January 21, 2020 Subjective Follow-up for sepsis, UTI, ureteral stone Status post cystoscopy with removal of stone ureteral stone this morning Resting in bed, awake and alert, oriented x3, very pleasant Patient's family member at the bedside visiting Patient reports that she feels improved compared to admission Still feeling weak but fever/chills subsided, no nausea or vomiting so far, still having 2-3 loose bowel movements this morning, nonbloody No abdominal pain Denies chest pain, palpitations, shortness of breath No other symptoms Review of Systems Review of Systems: All systems reviewed & are unremarkable except as noted in Subjective Physical Exam Physical Exam: General- oriented x 3, not in distress, speaks in sentences with no effort or accessory muscle use Head- atraumatic Eyes- PERRL, EOMI, anicteric ENT- oropharynx clear Neck- supple, no JVD, no adenopathy, no thyromegaly; carotids +2/2, no bruits appreciated Lungs- clear to auscultation bilaterally, no rales/wheezes Heart- normal rate, regular rhythm; no murmur, no gallop, no rub appreciated Abdomen- normal bowel sounds, nondistended, soft, nontender, no masses or hepatosplenomegaly Extremities- no pretibial edema, no calf tenderness; peripheral pulses intact Neuro- alert, oriented x 3; CN 2-12 grossly intact; motor 5/5 bilaterally;sensation 100% on all extremities; no other gross focal neurologic deficits Skin- warm & dry Results & Data Results & Data ([facility]) Vital Signs (Past 12 Hours) Vital Signs Temp Pulse Pulse Resp BP Pulse Ox 01/21/20 10:52 37.1 C 78 18 93/59 L 97 01/21/20 07:00 102 H 01/21/20 06:17 37.8 C H 100 H 16 100/63 93 01/21/20 04:54 36.7 C 101 H 22 104/67 94 01/21/20 04:00 38.2 C H 109 H 18 107/71 93 01/21/20 03:40 109 H 33 H 132/72 93 Laboratory Results Laboratory Results - last 24 hr 01/20/20 01/20/20 01/20/20 21:25 21:25 22:05 WBC 8.25 RBC 3.99 L Hgb 9.6 L Hct 31.7 L MCV 79.4 L MCH 24.1 L MCHC 30.3 L RDW Std Deviation 52.0 H RDW Coeff of Mary 17.9 H Plt Count 557 H MPV 10.0 Immature Gran % (Auto) 0.8 Neut % (Auto) 96.9 Lymph % (Auto) 1.6 [place] % (Auto) 0.7 Eos % (Auto) 0.0 Baso % (Auto) 0.0 Neut # (Auto) 7.99 H Lymph # (Auto) 0.13 L [place] # (Auto) 0.06 L Eos # (Auto) 0.00 Baso # (Auto) 0.00 Immature Gran # (Auto) 0.07 H Toxic Vacuolation RBC Morphology Unremarkable Sodium 138 Potassium 3.8 Chloride 105 Carbon Dioxide 22 Anion Gap 11.0 BUN 18 Creatinine 1.27 H Est Cr Clr Drug Dosing 50.7 Est GFR ( Amer) 54.3 Est GFR (Non-Af Amer) 46.8 BUN/Creatinine Ratio 14.2 Glucose 109 H Lactate Calcium 8.8 Magnesium Iron TIBC Ferritin Total Bilirubin 1.0 AST 59 H ALT 41 Alkaline Phosphatase 151 H Total Protein 7.4 Albumin 3.1 L Globulin 4.3 H Albumin/Globulin Ratio 0.7 L Lipase 79 Vitamin B12 Folate Urine Color Dark Yellow Urine Appearance Cloudy A Urine pH 5.0 Ur Specific [place] 1.015 Urine Protein 2+ H Urine Glucose (UA) Negative Urine Ketones Trace H Urine Blood 3+ H Urine Nitrite Positive A Urine Bilirubin Negative Urine Urobilinogen Negative Ur Leukocyte Esterase 3+ H Urine WBC (Auto) >30 H Urine RBC (Auto) >30 H U Hyaline Cast (Auto) 0 U Epithel Cells (Auto) 10-20 H Urine Bacteria (Auto) 3+ H Urine Yeast Not Reportable Stl C. diff Tox B Gene Stone Source Stone Weight Stone Composition Stone Composition 2 COVID-19 Eval Order COVID-19 PCR 01/21/20 01/21/20 01/21/20 00:40 00:40 01:05 WBC RBC Hgb Hct MCV MCH MCHC RDW Std Deviation RDW Coeff of Mary Plt Count MPV Immature Gran % (Auto) Neut % (Auto) Lymph % (Auto) [place] % (Auto) Eos % (Auto) Baso % (Auto) Neut # (Auto) Lymph # (Auto) [place] # (Auto) Eos # (Auto) Baso # (Auto) Immature Gran # (Auto) Toxic Vacuolation RBC Morphology Sodium Potassium Chloride Carbon Dioxide Anion Gap BUN Creatinine Est Cr Clr Drug Dosing Est GFR ( Amer) Est GFR (Non-Af Amer) BUN/Creatinine Ratio Glucose Lactate 1.8 Calcium Magnesium Iron TIBC Ferritin Total Bilirubin AST ALT Alkaline Phosphatase Total Protein Albumin Globulin Albumin/Globulin Ratio Lipase Vitamin B12 Folate Urine Color Urine Appearance Urine pH Ur Specific [place] Urine Protein Urine Glucose (UA) Urine Ketones Urine Blood Urine Nitrite Urine Bilirubin Urine Urobilinogen Ur Leukocyte Esterase Urine WBC (Auto) Urine RBC (Auto) U Hyaline Cast (Auto) U Epithel Cells (Auto) Urine Bacteria (Auto) Urine Yeast Stl C. diff Tox B Gene Stone Source Stone Weight Stone Composition Stone Composition 2 COVID-19 Eval Order Covid19 Done at [facility] COVID-19 PCR NEGATIVE 01/21/20 01/21/20 01/21/20 01:45 03:01 06:53 WBC 12.24 H RBC 3.32 L Hgb 8.0 L Hct 26.0 L MCV 78.3 L MCH 24.1 L MCHC 30.8 L RDW Std Deviation 51.5 H RDW Coeff of Mary 18.0 H Plt Count 336 MPV 9.8 Immature Gran % (Auto) 1.8 Neut % (Auto) 92.3 Lymph % (Auto) 2.1 [place] % (Auto) 3.8 Eos % (Auto) 0.0 Baso % (Auto) 0.0 Neut # (Auto) 11.30 H Lymph # (Auto) 0.26 L [place] # (Auto) 0.46 Eos # (Auto) 0.00 Baso # (Auto) 0.00 Immature Gran # (Auto) 0.22 H Toxic Vacuolation 1+ RBC Morphology Sodium Potassium Chloride Carbon Dioxide Anion Gap BUN Creatinine Est Cr Clr Drug Dosing Est GFR ( Amer) Est GFR (Non-Af Amer) BUN/Creatinine Ratio Glucose Lactate Calcium Magnesium Iron TIBC Ferritin Total Bilirubin AST ALT Alkaline Phosphatase Total Protein Albumin Globulin Albumin/Globulin Ratio Lipase Vitamin B12 Folate Urine Color Urine Appearance Urine pH Ur Specific [place] Urine Protein Urine Glucose (UA) Urine Ketones Urine Blood Urine Nitrite Urine Bilirubin Urine Urobilinogen Ur Leukocyte Esterase Urine WBC (Auto) Urine RBC (Auto) U Hyaline Cast (Auto) U Epithel Cells (Auto) Urine Bacteria (Auto) Urine Yeast Stl C. diff Tox B Gene Negative Cdiff Gene Stone Source Pending Stone Weight Pending Stone Composition Pending Stone Composition 2 Pending COVID-19 Eval Order COVID-19 PCR 01/21/20 01/21/20 01/21/20 06:53 06:53 06:53 WBC RBC Hgb Hct MCV MCH MCHC RDW Std Deviation RDW Coeff of Mary Plt Count MPV Immature Gran % (Auto) Neut % (Auto) Lymph % (Auto) [place] % (Auto) Eos % (Auto) Baso % (Auto) Neut # (Auto) Lymph # (Auto) [place] # (Auto) Eos # (Auto) Baso # (Auto) Immature Gran # (Auto) Toxic Vacuolation RBC Morphology Sodium 139 Potassium 3.3 L Chloride 109 H Carbon Dioxide 19 L Anion Gap 12.0 H BUN 21 H Creatinine 1.52 H Est Cr Clr Drug Dosing 41.6 Est GFR ( Amer) 43.7 Est GFR (Non-Af Amer) 37.7 BUN/Creatinine Ratio 13.7 Glucose 122 H Lactate Calcium 7.9 L Magnesium 1.5 L Iron 6 L TIBC 358 Ferritin 33.1 Total Bilirubin AST ALT Alkaline Phosphatase Total Protein Albumin Globulin Albumin/Globulin Ratio Lipase Vitamin B12 > 2000 H Folate 5.55 Urine Color Urine Appearance Urine pH Ur Specific [place] Urine Protein Urine Glucose (UA) Urine Ketones Urine Blood Urine Nitrite Urine Bilirubin Urine Urobilinogen Ur Leukocyte Esterase Urine WBC (Auto) Urine RBC (Auto) U Hyaline Cast (Auto) U Epithel Cells (Auto) Urine Bacteria (Auto) Urine Yeast Stl C. diff Tox B Gene Stone Source Stone Weight Stone Composition Stone Composition 2 COVID-19 Eval Order COVID-19 PCR 01/21/20 11:45 WBC RBC Hgb Hct MCV MCH MCHC RDW Std Deviation RDW Coeff of Mary Plt Count MPV Immature Gran % (Auto) Neut % (Auto) Lymph % (Auto) [place] % (Auto) Eos % (Auto) Baso % (Auto) Neut # (Auto) Lymph # (Auto) [place] # (Auto) Eos # (Auto) Baso # (Auto) Immature Gran # (Auto) Toxic Vacuolation RBC Morphology Sodium Potassium Chloride Carbon Dioxide Anion Gap BUN Creatinine Est Cr Clr Drug Dosing Est GFR ( Amer) Est GFR (Non-Af Amer) BUN/Creatinine Ratio Glucose Lactate Calcium Magnesium Iron TIBC Ferritin Total Bilirubin AST ALT Alkaline Phosphatase Total Protein Albumin Globulin Albumin/Globulin Ratio Lipase Vitamin B12 Folate Urine Color Urine Appearance Urine pH Ur Specific [place] Urine Protein Urine Glucose (UA) Urine Ketones Urine Blood Urine Nitrite Urine Bilirubin Urine Urobilinogen Ur Leukocyte Esterase Urine WBC (Auto) Urine RBC (Auto) U Hyaline Cast (Auto) U Epithel Cells (Auto) Urine Bacteria (Auto) Urine Yeast Stl C. diff Tox B Gene Negative Cdiff Gene Stone Source Stone Weight Stone Composition Stone Composition 2 COVID-19 Eval Order COVID-19 PCR
[2020-01-21 16:26] LABS: BUN Creatinine Ratio 14.5 (10-20); Calcium 8.2 mg/dl (8.5-10.1); Creatinine Clr Calc Pharmacy 40.8 ml/min; Est GFR (African American) 42.6; Est GFR (Non-African American) 36.8; Magnesium 2.4 mg/dl (1.8-2.4); Potassium 4.2 mmol/L (3.5-5.1)
[2020-01-21] MEDS: ACETAMINOPHEN 325 MG TAB PO PRN (17:26)
[2020-01-21] MEDS: LOPERAMIDE HCL 2 MG CAP PO PRN ×2 (17:26→21:37)
[2020-01-21] MEDS: FERROUS SULFATE 325 MG TAB PO SCH (17:27)
[2020-01-22] MEDS: PIPERACILLIN/TAZOBACTAM 4.5 GM in DEXTROSE 5% 100 ML IV SCH ×3 (01:35→18:40)
[2020-01-22] MEDS ORDERED: PROMETHAZINE HCL 12.5 MG in SODIUM CHLORIDE 0.9% 50 ML IV PRN (03:08)
[2020-01-22] MEDS: ACETAMINOPHEN 325 MG TAB PO PRN ×2 (03:26→16:15)
[2020-01-22] MEDS: SODIUM CHLORIDE 0.9% 1000ML 1,000 ML IV SCH ×2 (05:30→14:13)
[2020-01-22 07:15] LABS: Basophils # (auto) 0.01 K/uL (0-0.2); Basophils % (auto) 0.1 %; Eosinophils # (auto) 0.04 K/uL (0-0.5); Eosinophils % (auto) 0.2 %; Hematocrit (blood only) 25.8 % (37-47); Hemoglobin 7.8 g/dL (12.0-16.0); Immature Granulocytes # (auto) 0.21 K/uL (0.00-0.02); Immature Granulocytes % (auto) 1.3 %; Lymphocytes # (auto) 1.19 K/uL (1.2-3.4); Lymphocytes % (auto) 7.4 %; Mean Corpuscular Hemoglobin 23.6 pg (25-34); Mean Corpuscular Hgb Conc 30.2 g/dL (32-36); Mean Corpuscular Volume 77.9 fL (80-100); Mean Platelet Volume 9.6 fL (7.4-10.4); Monocytes # (auto) 1.01 K/uL (0.11-0.59); Monocytes % (auto) 6.3 %; Neutrophils # (auto) 13.56 K/uL (1.4-6.5); Neutrophils % (auto) 84.7 %; Platelet Count 304 K/uL (130-400); RDW Coefficient of Variation 18.5 % (11.5-14.5); RDW Standard Deviation 53.3 fL (36.4-46.3); Red Blood Count 3.31 M/uL (4.2-5.4); White Blood Count 16.02 K/uL (4.8-10.8)
[2020-01-22] MEDS: FERROUS SULFATE 325 MG TAB PO SCH ×2 (07:49→16:58)
[2020-01-22 07:54] LABS: BUN Creatinine Ratio 15.2 (10-20); Calcium 8.3 mg/dl (8.5-10.1); Creatinine Clr Calc Pharmacy 45.8 ml/min; Est GFR (African American) 47.4; Est GFR (Non-African American) 40.9; Magnesium 2.4 mg/dl (1.8-2.4)
[2020-01-22] MEDS: LOPERAMIDE HCL 2 MG CAP PO PRN (09:39)
--- NOTE | 2020-01-22 13:01 | Gastrointestinal Consultation ---
Date of Consultation January 22, 2020 Assessment & Plan (1) Anemia: (2) Diarrhea: (3) Gastric bypass status for obesity: Pt is a 59 y/o female currently admitted for obstructive urosepsis s/p ureteral stent placement, on IV antibx. She has hx of gastric bypass in 2010, noted to have iron deficiency anemia and also having diarrhea. Cdiff negative, stool cx pending. - Start Protonix 40mg BID - Will schedule EGD eval tomorrow 01/2227 yo r/o PUD, gastritis, Hpylori - Continue Ferrous Sulfate 325mg BID - Trial Colestipol 1g BID for suspected bile acid diarrhea s/p cholecystectomy - May try low lactose diet as well for possible lactose intolerance - She'll need an outpt colonoscopy eval which we can help schedule - She should also f/u w GI nutrition - Avoid NSAIDs Attg add: I interviewed and examined pt, reviewed chart and labs. Pt with RYGB, iron def anemia. Rec EGD tomorrow r/o anastamotic ulcer, outpt cscopy. History of Present Illness Reason for Consultation: Anemia, diarrhea; s/p gastric bypass Requesting Physician: Dr. Michelet Tapia Attending Physician: Dr. Tad Peterson History of Present Illness Pt is a 59 y/o female currently admitted w obtructive urosepsis s/p ureteral stent placements 2 days ago. GI is consulted for iron deficiency anemia and diarrhea. She is s/p lap gastric bypass in 2010. Hasn't followed up with GI Nutrition since 2010. Hgb baseline 9, currently 7.8/25. Iron level low, FA & B12 normal. She isn't taking iron supplements at home but is on Ferrous Sulfate 325mg BID now. She denies abd pain, n/v symptoms. Stools had been loose for past few weeks. Initially thought it may be related to food poisoning from [employer] around Labor day weekend. Cdiff negative, Stool cx pending. She is having nocturnal awakening w diarrhea, abd cramping. No signs of melena or hematochezia. She hasn't tried anything OTC to help alleviate diarrhea. She is s/p cholecytectomy. Foods like coffee w milk, cheese seems to cause cramping, stool urgency. Denies tobacco products, rare ETOH. Some NSAIDs uses (2x a month) Last colonoscopy in [address] abd/pelvis w contrast showed no signs of bowel obstruction, no biliary ductal dilation s/p cholecystectomy Allergies Allergy/AdvReac Type Severity Reaction Status Date / Time ondansetron [From Zofran] AdvReac Unknown Vomiting Verified 01/31/19 08:15 Home Medications Home Medications Medication Instructions Recorded Confirmed Type No Known Home Medications 01/21/20 01/21/20 History Patient History Medical History Endometrial thickening on ultrasound History of anesthesia reaction WITH GASTRIC BYPASS SURGERY, TOOK LONG TIME TO WAKE UP ( [facility] 2011) History of chest pain October 10, 2018...chest pain, dizziness & nausea...rested and resolved - no re- occurence since History of high cholesterol History of kidney stones x1 History of varicella Pain, lower extremity "HIPS TO FEET HURTING" STARTED 1 YR AGO/WORSENING OVER LAST 2 MONTHS Post-menopausal bleeding Postmenopausal bleeding Surgical History History of colonoscopy History of eye surgery LASIK - BOTH History of gastric bypass History of tubal ligation History of wisdom tooth extraction S/P laparoscopic cholecystectomy Family History Other Family history of cancer Social History Smoking Status: Never smoker Second Hand Exposure: No; Do You Dip or Chew Tobacco: No; Tobacco Cessation Education Requested by Patient: No Hx Alcohol Use: Yes Alcohol type: wine Hx Substance Use: No Preferred Language: Gambian Communication Ability: Effective Barker Operator Required: No Beliefs That Will Affect Care: None marital status: Current Living Situation: Alone Feels Safe at Home: Yes Safety Concerns: Feels Safe At This Time Assistive Devices: None Assistive Devices Comment: Reading glasses Review of Systems Review of Systems: All systems reviewed & are unremarkable except as noted in HPI & below Physical Exam Constitutional: WD/WN, vitals as above well groomed, cooperative and comfortable Eyes: PERRL, conjunctivae normal, anicteric sclerae ENMT: external ear and nose normal, oropharynx normal Respiratory: normal respiratory effort, lungs clear to auscultation Cardiovascular: RRR, no murmur, no edema Gastrointestinal (Abdomen): normal bowel sounds, soft, nontender, no hepatosplenomegaly Skin: no rashes, warm and dry no jaundice Psychiatric: A+Ox3, euthymic affect Lymphatic: no lymphedema Results & Data ([facility]) Vital Signs (Past 12 Hours) Vital Signs Temp Pulse Pulse Resp BP Pulse Ox 01/22/20 11:15 36.5 C 61 18 129/82 97 01/22/20 07:26 36.5 C 68 17 108/59 L 96 01/22/20 07:00 67 01/22/20 03:30 36.7 C 85 18 154/80 H 99
--- NOTE | 2020-01-22 13:22 | Urology Progress Note ---
Date of Service January 22, 2020 Assessment & Plan (1) Sepsis: Emergent ureteral stent placement on Sunday night secondary to an obstructing ureteral calculus I believe that stone passed in the midst of stent placement We will plan for continued antibiotics and an outpatient follow-up visit with KUB/stent removal For the remainder of her hospitalization it appears that the focus will be on non- issuesin turn, we will plan to follow from the periphery, please contact us if there are further issues while inpatient (2) Right ureteral stone: Admission and Anticipated Discharge Date Admission Date: January 21, 2020 Subjective Admitted through the ER and stented emergently overnight on Sunday secondary to urosepsis and obstructing distal right ureteral calculus The stent placement her stone seemed to pass She has progressed appropriately in regard to recoverycurrently now working on several non- issuesdiarrhea, cough, headache She will likely continue to address these issues prior to discharge home She is not experiencing stent related discomfort or hematuria/dysuria Review of Systems Review of Systems: All systems reviewed & are unremarkable except as noted in HPI & below Physical Exam Constitutional: well developed and well nourished Respiratory: no respiratory distress Cardiovascular: Extremities: no pedal edema Gastrointestinal (Abdomen): Inspection/Auscultation: abdomen normal to inspection Results & Data ([facility]) Vital Signs (Past 12 Hours) Vital Signs Temp Pulse Pulse Resp BP Pulse Ox 01/22/20 11:15 36.5 C 61 18 129/82 97 01/22/20 07:26 36.5 C 68 17 108/59 L 96 01/22/20 07:00 67 01/22/20 03:30 36.7 C 85 18 154/80 H 99 PG Care Time/CCT Total # of Minutes Spent Total Time Spent with Patient: Total time spent is greater than 50% in coordination of care (as documented) at patient's floor/unit and/or counseling patient: Coding Level of Care Code 91352 Subseq Hosp Care Lvl 2 Diagnoses Sepsis A41.9 Right ureteral stone N20.1
--- NOTE | 2020-01-22 15:46 | Hospitalist Progress Note ---
Date of Service January 22, 2020 Assessment & Plan (1) Sepsis: (2) Bacteremia: (3) Right ureteral stone: 59-year-old female with history of gastric bypass for obesity, presenting with fever, UTI. Sepsis secondary to E. coli UTI, gram-negative bacilli bacteremia, right urete ral stone Status post cystoscopy with stone extraction 01/21/2020 Fever improving, white count up to 16.02 Blood cultures gram-negative bacilli x2 bottles Urine culture E. coli Continue Zosyn Follow-up cultures Follow-up with urologist as an outpatient in 1 to 2 weeks Acute renal failure, likely secondary to obstructive uropathy, sepsis Creatinine improved from 1.5-1.4 Hopefully with stone extraction, treatment of sepsis, kidney function will start to improve Continue IV NSS Monitor BUN/creatinine Iron deficiency anemia, history of gastric bypass surgery Iron level 6 Vitamin B12 and folate normal Start ferrous sulfate 325 twice daily, not tolerating well secondary to nausea, will check with director [employer] for possible iron IV Check fecal occult blood test Monitor hemoglobin, today at 7.8 but asymptomatic, transfuse if below 7 Fire Alarm 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 difficile negative Stool cultures pending Currently on Zosyn GI consulted DVT prophylaxis SCDs for now in light of possible GI bleed Disposition Lives at home with family Anticipate discharge to home when medically stable Admission and Anticipated Discharge Date Admission Date: January 21, 2020 Subjective For sepsis, right ureteral stone, bacteremia, other problems noted below Seen resting in bed, comfortable, not in distress States she feels somewhat better compared to yesterday No recurrence of fevers or chills Still having some hematuria but no dysuria Still having loose bowel movements, nonbloody and occasional abdominal discomfort and nausea Denies chest pain, shortness of breath, dizziness, palpitations No other symptoms Review of Systems Review of Systems: All systems reviewed & are unremarkable except as noted in Subjective Physical Exam Physical Exam: General- oriented x 3, not in distress, speaks in sentences with no effort or accessory muscle use Eyes- anicteric Neck- no JVD Lungs- clear BS bilaterally, no crackles, no wheezing Heart- normal rate, regular rhythm; no murmurs Abdomen- normal bowel sounds, nondistended, soft, nontender Extremities- no pretibial edema, no calf tenderness Neuro- alert, oriented x 3; no gross focal neurologic deficits Skin- warm & dry Results & Data Results & Data ([facility]) Vital Signs (Past 12 Hours) Vital Signs Temp Pulse Pulse Resp BP Pulse Ox 01/22/20 11:15 36.5 C 61 18 129/82 97 01/22/20 07:26 36.5 C 68 17 108/59 L 96 01/22/20 07:00 67 Laboratory Results Laboratory Results - last 24 hr 01/21/20 01/22/20 01/22/20 15:48 06:47 06:47 WBC 16.02 H RBC 3.31 L Hgb 7.8 L Hct 25.8 L MCV 77.9 L MCH 23.6 L MCHC 30.2 L RDW Std Deviation 53.3 H RDW Coeff of Mary 18.5 H Plt Count 304 MPV 9.6 Immature Gran % (Auto) 1.3 Neut % (Auto) 84.7 Lymph % (Auto) 7.4 Howard % (Auto) 6.3 Eos % (Auto) 0.2 Baso % (Auto) 0.1 Neut # (Auto) 13.56 H Lymph # (Auto) 1.19 L Howard # (Auto) 1.01 H Eos # (Auto) 0.04 Baso # (Auto) 0.01 Immature Gran # (Auto) 0.21 H Sodium 139 144 Potassium 4.2 D 4.0 Chloride 111 H 116 H Carbon Dioxide 19 L 21 Anion Gap 9.0 7.0 BUN 23 H 22 H Creatinine 1.55 H 1.42 H Est Cr Clr Drug Dosing 40.8 45.8 Est GFR ( Amer) 42.6 47.4 Est GFR (Non-Af Amer) 36.8 40.9 BUN/Creatinine Ratio 14.5 15.2 Glucose 117 H 86 Calcium 8.2 L 8.3 L Magnesium 2.4 2.4
[2020-01-22 16:10] LABS: Hematocrit (blood only) 27.8 % (37-47); Hemoglobin 8.3 g/dL (12.0-16.0)
[2020-01-22] MEDS ORDERED: IRON SUCROSE 200 MG in 0.9 % SODIUM CHLORIDE 100 ML IV ONE (19:00)
[2020-01-22] MEDS: COLESTIPOL HCL 1 GM TAB PO SCH (21:01)
[2020-01-22] MEDS: PANTOprazole 40 MG TAB PO SCH (21:04)
[2020-01-23] MEDS: SODIUM CHLORIDE 0.9% 1000ML 1,000 ML IV SCH ×2 (01:04→09:37)
[2020-01-23] MEDS: PIPERACILLIN/TAZOBACTAM 4.5 GM in DEXTROSE 5% 100 ML IV SCH (01:27)
[2020-01-23 06:57] LABS: Basophils # (auto) 0.05 K/uL (0-0.2); Basophils % (auto) 0.4 %; Eosinophils # (auto) 0.06 K/uL (0-0.5); Eosinophils % (auto) 0.4 %; Hematocrit (blood only) 25.2 % (37-47); Hemoglobin 7.5 g/dL (12.0-16.0); Immature Granulocytes % (auto) 0.7 %; Lymphocytes % (auto) 7.8 %; Mean Corpuscular Hemoglobin 23.1 pg (25-34); Mean Corpuscular Hgb Conc 29.8 g/dL (32-36); Mean Corpuscular Volume 77.8 fL (80-100); Mean Platelet Volume 10.2 fL (7.4-10.4); Monocytes # (auto) 0.48 K/uL (0.11-0.59); Monocytes % (auto) 3.4 %; Neutrophils # (auto) 12.27 K/uL (1.4-6.5); Neutrophils % (auto) 87.3 %; Platelet Count 269 K/uL (130-400); RDW Coefficient of Variation 18.5 % (11.5-14.5); RDW Standard Deviation 53.5 fL (36.4-46.3); Red Blood Count 3.24 M/uL (4.2-5.4); White Blood Count 14.06 K/uL (4.8-10.8)
[2020-01-23 07:30] LABS: RBC Morphology Unremarkable
[2020-01-23 07:33] LABS: Creatinine Clr Calc Pharmacy 56.5 ml/min; Est GFR (African American) 59.9; Est GFR (Non-African American) 51.7; Potassium 3.7 mmol/L (3.5-5.1)
[2020-01-23] MEDS: PANTOprazole 40 MG TAB PO SCH ×3 (09:39→21:24)
[2020-01-23] MEDS: COLESTIPOL HCL 1 GM TAB PO SCH ×3 (09:39→21:24)
[2020-01-23] MEDS: cefTRIAXone SODIUM 2,000 MG in DEXTROSE 5% 50 ML IV SCH (09:56)
--- NOTE | 2020-01-23 11:12 | Gastroenterology Progress Note ---
Date of Service January 23, 2020 Assessment & Plan (1) Anemia: (2) Diarrhea: (3) Gastric bypass status for obesity: Pt is a 59 y/o female currently admitted for obstructive urosepsis s/p ureteral stent placement, on IV antibx. She has hx of gastric bypass in 2010, noted to have iron deficiency anemia and also having diarrhea. Cdiff negative, stool cx pending. - Continue Protonix 40mg BID - Keep NPO for EGD eval today to r/o PUD, gastritis, Hpylori - Continue Ferrous Sulfate 325mg BID - Colestipol 1g BID for suspected bile acid diarrhea s/p cholecystectomy - May try low lactose diet as well for possible lactose intolerance in the future - She'll need an outpt colonoscopy eval which we can help schedule - She should also f/u w GI nutrition - Avoid NSAIDs Admission and Anticipated Discharge Date Admission Date: January 21, 2020 Supervising Physician Co-Signing Physician Notes I performed a history and physical examination of the patient today, including specifically on physical exam - soft abdomen. I have discussed the patient's management with the advanced practitioner. Please refer to the nurse practitioner's note for the documented findings and plan of care. EGD for anemia Subjective Pt had some n/v overnight - emesis clear, lower abd cramping. Less diarrhea. Had been NPO since midnight for EGD today Review of Systems Review of Systems: All systems reviewed & are unremarkable except as noted in HPI & below Physical Exam Constitutional: WD/WN, vitals as above well groomed, cooperative and comfortable Eyes: PERRL, conjunctivae normal, anicteric sclerae ENMT: external ear and nose normal, oropharynx normal Respiratory: normal respiratory effort, lungs clear to auscultation Cardiovascular: RRR, no murmur, no edema Gastrointestinal (Abdomen): normal bowel sounds, soft, nontender, no hepatosplenomegaly Skin: no rashes, warm and dry no jaundice Psychiatric: A+Ox3, euthymic affect Lymphatic: no lymphedema Results & Data ([facility]) Vital Signs (Past 12 Hours) Vital Signs Temp Pulse Pulse Resp BP BP Pulse Ox 01/23/20 08:07 36.9 C 76 18 149/84 H 96 01/23/20 08:00 79 01/23/20 04:36 36.9 C 70 18 154/94 H 95 01/23/20 00:00 65 01/22/20 23:17 36.7 C 59 L 18 139/84 95
[2020-01-23] MEDS ORDERED: LIDOCAINE HCL 2% 2 ML VIAL/AMP(20MG/ML) INFIL ONE (11:59)
[2020-01-23] MEDS ORDERED: PROPOFOL IV EMULSION 10 MG/ML 20 ML VIAL IV ONE (11:59)
--- NOTE | 2020-01-23 12:10 | History & Physical Bridge Note ---
Date of Service January 23, 2020 History & Physical Bridge Note I have examined the patient, reviewed the History & Physical and in the interval since the performance of the History & Physical I have noted the following changes of clinical significance: no changes noted
--- NOTE | 2020-01-23 12:21 | Anesthesiology Consultation ---
Date of Service January 23, 2020 Assessment & Plan (1) Encounter for pre-operative examination: Chart Review Chart Review: Acceptable Risk for Surgery and Patient NOT seen in Pre Admission Testing Consults Requested none ASA ASA3 Proposed Anesthesia Anesthesia Type: MAC Risk / Benefits Reviewed With: PT / POA / Parent / Guardian, Accepts Plan and I nformed Consent Obtained Additional Notes Reports occassional chest pain and SOB with ambulation, but tolerated sedation 2 days ago with sepsis without apparent cardiac event so I feel it is appropriate to proceed with EGD for worsening anemia. Patient should get cardiac evaluation before elective outpatient procedures. History Surgery Operation Date: 01/21/20 03:00 Proposed Procedures p Cystoscopy - Sukhdeep Montiel MD Operation Date: 01/23/20 16:55 Proposed Procedures p Esophagogastroduodenoscopy Dr Hearn - Talat Hearn MD Height/Weight Height: 5 ft 1 in Weight: 97.1 kg Allergies Allergy/AdvReac Type Severity Reaction Status Date / Time ondansetron [From Zofran] AdvReac Unknown Vomiting Verified 01/23/20 12:15 Medications Home Medications Medication Instructions Recorded Confirmed Last Taken No Known Home Medications 01/21/20 01/21/20 Unknown Active Medications Generic Name Dose Route Start Last Admin Trade Name Freq PRN Reason Stop Dose Admin Acetaminophen 650 mg 01/21/20 03:59 01/22/20 16:15 Acetaminophen 325 Mg Tab PO 02/20/20 03:58 650 mg Q4H PRN Administration Pain or Fever Colestipol HCl 1 gm 01/22/20 21:00 01/22/20 21:01 Colestipol Hcl 1 Gm Tab PO 02/21/20 20:59 1 gm BID ARAM Administration Sodium Chloride 1,000 mls @ 125 mls/hr 01/21/20 03:59 01/23/20 09:37 Nss 1000ml IV 02/20/20 03:58 125 mls/hr .Q8H ARAM Administration Promethazine HCl 12.5 mg/ 50.5 mls @ 202 mls/hr 01/22/20 03:08 01/22/20 04:14 Sodium Chloride IV 02/21/20 03:07 Infused Q6H PRN Infusion Nausea And Vomiting Ceftriaxone Sodium 2,000 mg/ 70 mls @ 100 mls/hr 01/23/20 09:00 01/23/20 10:51 Dextrose IV 02/02/20 08:59 Infused DAILY ARAM Infusion Protocol Loperamide HCl 2 mg 01/21/20 15:21 01/22/20 09:39 Loperamide Hcl 2 Mg Cap PO 02/20/20 15:20 2 mg UD PRN Administration Diarrhea Pantoprazole Sodium 40 mg 01/22/20 21:00 01/22/20 21:04 Pantoprazole 40 Mg Tab PO 02/21/20 20:59 40 mg BID ARAM Administration NPO Date Last Intake of Fluids: 01/22/20 Time Last Intake of Fluids: 23:00 Date Last Intake of Solids: 01/20/20 Time Last Intake of Solids: 18:00 Past Medical History Medical History Endometrial thickening on ultrasound History of anesthesia reaction WITH GASTRIC BYPASS SURGERY, TOOK LONG TIME TO WAKE UP ( [facility], 2011) History of chest pain October 10, 2018...chest pain, dizziness & nausea...rested and resolved - no re- occurence since History of high cholesterol History of kidney stones x1 History of varicella Pain, lower extremity "HIPS TO FEET HURTING" STARTED 1 YR AGO/WORSENING OVER LAST 2 MONTHS Post-menopausal bleeding Postmenopausal bleeding Exercise / Class Metabolic Activity III < 4 Walking/Shop/Light housework Occassional CP and SOB with ambulation Past Family History Family History Other Family history of cancer Past Surgical History Surgical History History of colonoscopy History of eye surgery LASIK - BOTH History of gastric bypass History of tubal ligation History of wisdom tooth extraction S/P laparoscopic cholecystectomy Past Anesthesia History No Hx of Anesthesia Complications History of PONV No Hx of PONV Social History Smoking Status: Never smoker Do You Dip or Chew Tobacco: No Hx Alcohol Use: Yes Alcohol type: wine alcohol intake frequency: holidays/special occasions only Hx Substance Use: No substance use type: does not use Review of Systems Reports nausea and episode of vomiiting this morning - now resolved. Believed it was caused by the floor gving her some PO medications Physical Exam Vital Signs Last Vital Signs Temp 36.8 C 01/23/20 12:10 Pulse 86 09/25/20 12:10 Resp 18 01/23/20 12:10 BP 178/90 H 01/23/20 12:10 Pulse Ox 99 01/23/20 12:10 Constitutional + morbidly obese ENMT Mouth: no TMJ abnormality and oral opening not small Thyromental Distance: > or= 3.5 Finger Breadths Mallampati Class: I Mouth / Teeth: 1. loose Neck normal visual inspection; neck extension not limited Respiratory normal respiratory effort Auscultation: lungs clear to auscultation bilaterally Cardiovascular Rate/Rhythm: regular rate and regular rhythm Heart Sounds: no murmur Neurologic moves all extremities Psychiatric Orientation: alert and oriented x 3 Testing Laboratory Results 01/23/20 06:17 01/23/20 06:17 Urine Color Dark Yellow 01/20/20 22:05 Urine Appearance Cloudy (Clear) A 01/20/20 22:05 Urine pH 5.0 (4.5-7.5) 01/20/20 22:05 Ur Specific [place] 1.015 (1.000-1.030) 01/20/20 22:05 Urine Protein 2+ (Negative) H 01/20/20 22:05 Urine Glucose (UA) Negative (Negative) 01/20/20 22:05 Urine Ketones Trace (Negative) H 01/20/20 22:05 Urine Nitrite Positive (Negative) A 01/20/20 22:05 Ur Leukocyte Esterase 3+ (Negative) H 01/20/20 22:05 Urine WBC (Auto) >30 /hpf (0-5) H 01/20/20 22:05 Urine RBC (Auto) >30 /hpf (0-4) H 01/20/20 22:05 U Hyaline Cast (Auto) 0 /lpf (0-5) 01/20/20 22:05 U Epithel Cells (Auto) 10-20 /lpf (0-5) H 01/20/20 22:05 Urine Bacteria (Auto) 3+ (Negative) H 01/20/20 22:05 01/21/20 11:45 Escherichia coli Shiga Toxins Test - Preliminary Stool Stool Culture - Preliminary Madeline albicans 01/21/20 01:45 WBC Smear - Final Stool Escherichia coli Shiga Toxins Test - Preliminary Stool Culture - Preliminary No Salmonella isolated to date, No Shigella isolated to date, No Campylobacter jejuni isolated to date. 01/20/20 22:05 Urine Culture - Final Urine,Clean Catch Escherichia coli 01/21/20 01:07 Aerobic Blood Culture - Final Blood Escherichia coli Anaerobic Blood Culture - Final Escherichia coli 01/21/20 01:05 Aerobic Blood Culture - Final Blood Escherichia coli Anaerobic Blood Culture - Final Escherichia coli
--- NOTE | 2020-01-23 12:50 | GI REPORT ---
Patient Name: Conchis Swanson Procedure Date: 01/23/2020 12:17 PM Date of : 1960 Admit Type: Inpatient Age: 59 Gender: Female Attending MD: Talat Hearn MD Procedure: Upper GI endoscopy Providers: Talat Hearn MD Referring MD: Michelet Tapia Indications: Anemia Medicines: Propofol per Anesthesia Complications: No immediate complications. Estimated Blood Loss: Estimated blood loss: none. Procedure: Pre-Anesthesia Assessment: - Prior to the procedure, a History and Physical was performed, and patient medications, allergies and sensitivities were reviewed. The patient's tolerance of previous anesthesia was reviewed. - The risks and benefits of the procedure and the sedation options and risks were discussed with the patient. All questions were answered and informed consent was obtained. - Patient identification and proposed procedure were verified prior to the procedure by the physician and the nurse. The procedure was verified in the procedure room. - Pre-procedure physical examination revealed no contraindications to sedation. After obtaining informed consent, the endoscope was passed under direct vision. Throughout the procedure, the patient's blood pressure, pulse, and oxygen saturations were monitored continuously. The Endoscope was introduced through the mouth, and advanced to the efferent jejunal loop. The upper GI endoscopy was accomplished without difficulty. The patient tolerated the procedure well. Findings: The examined esophagus was normal. Evidence of a gastric bypass was found. A gastric pouch was found. The staple line appeared intact. The gastrojejunal anastomosis was characterized by healthy appearing mucosa and an intact staple line. This was traversed. Removal of a staple was accomplished with a regular forceps. The examined jejunum was normal. Impression: - Normal esophagus. - Gastric bypass. Gastrojejunal anastomosis characterized by healthy appearing mucosa and no ulceration. - Normal examined jejunum. Recommendation: - Discharge patient to home. - Colonoscopy as OP. - Recall GI if needed. Talat Hearn MD 01/23/2020 12:49:22 PM This report has been signed electronically. Note Initiated On: 01/23/2020 12:17 PM Number of Addenda: 0 I attest to the content of the Intraoperative Record and orders documented therein, exceptions below {[id number]}
--- NOTE | 2020-01-23 14:02 | Anesthesiology Progress Note ---
Date of Service January 23, 2020 Anesthesia Post Procedure Vital Signs Vital Signs: Temp Pulse Pulse Resp BP BP Pulse Ox 01/23/20 13:17 68 18 150/84 H 99 01/23/20 13:02 67 18 139/89 100 01/23/20 12:47 68 18 134/83 100 01/23/20 12:10 36.8 C 86 18 178/90 H 99 01/23/20 12:00 36.7 C 77 18 157/78 H 99 01/23/20 08:07 36.9 C 76 18 149/84 H 96 01/23/20 08:00 79 01/23/20 04:36 36.9 C 70 18 154/94 H 95 01/23/20 00:00 65 01/22/20 23:17 36.7 C 59 L 18 139/84 95 01/22/20 19:27 36.5 C 58 L 21 137/83 97 01/22/20 15:51 36.6 C 64 20 146/76 H 98 01/22/20 15:46 62 Pain Intensity Abdomen: Pain Intensity: 7 Transfer of Care Handoff Completed per policy Notes Mental Status: alert / awake / arousable and participated in evaluation Nausea / Vomiting: adequately controlled Pain: adequately controlled Airway Patency, RR, SpO2: stable & adequate BP & HR: stable & adequate Hydration State: stable & adequate Anesthetic Complications: no major complications apparent and Pt Satisfied with anesthetic care
[2020-01-23] MEDS ORDERED: SODIUM CHLORIDE 0.9% 250 ML IV PRN (15:34)
--- NOTE | 2020-01-23 15:35 | Hospitalist Progress Note ---
Date of Service January 23, 2020 Assessment & Plan (1) Sepsis: (2) Bacteremia: (3) Right ureteral stone: 59-year-old female with history of gastric bypass for obesity, presenting with fever, UTI. Sepsis secondary to E. coli UTI, gram-negative bacilli bacteremia, right urete ral stone Status post cystoscopy with stone extraction 01/21/2020 Afebrile, white count down to 14 K Blood cultures gram-E. coli Urine culture E. coli Continue ceftriaxone Follow-up with urologist as an outpatient in 1 to 2 weeks Acute renal failure, likely secondary to obstructive uropathy, sepsis Creatinine improved from 1.5-1.4 Back to baseline Monitor BUN/creatinine Iron deficiency anemia, history of gastric bypass surgery Iron level 6 Vitamin B12 and folate normal IV iron given Start p.o. iron once nausea improves Hemoglobin 7.5, patient is symptomatic with dyspnea on exertion, will transfuse 1 unit of packed RBC Status post EGD: Unrevealing Outpatient colonoscopy Diarrhea, history of gastric bypass surgery C. difficile negative Stool cultures negative Resolved DVT prophylaxis SCDs for now in light of possible GI bleed Disposition Lives at home with family Anticipate discharge to home when medically stable Admission and Anticipated Discharge Date Admission Date: January 21, 2020 Subjective Follow-up for UTI, anemia, etc. Seen resting in bed, comfortable, in good spirits Reports dyspnea on exertion, but no dizziness, or chest pain No active bleeding today Denies abdominal pain, problems with urination No other symptoms Review of Systems Review of Systems: All systems reviewed & are unremarkable except as noted in Subjective Physical Exam Physical Exam: General- oriented x 3, not in distress, speaks in sentences with no effort or accessory muscle use Eyes- anicteric Neck- no JVD Lungs- clear breath sounds bilaterally No wheezing or crackles Heart- normal rate, regular rhythm; no murmurs Abdomen- normal bowel sounds, nondistended, soft, nontender Extremities- no pretibial edema, no calf tenderness Neuro- alert, oriented x 3; no gross focal neurologic deficits Skin- warm & dry Results & Data Results & Data ([facility]) Vital Signs (Past 12 Hours) Vital Signs Temp Pulse Pulse Resp BP BP Pulse Ox 01/23/20 13:59 36.9 C 64 20 150/84 H 98 01/23/20 13:17 68 18 150/84 H 99 01/23/20 13:02 67 18 139/89 100 01/23/20 12:47 68 18 134/83 100 01/23/20 12:10 36.8 C 86 18 178/90 H 99 01/23/20 12:00 36.7 C 77 18 157/78 H 99 01/23/20 08:07 36.9 C 76 18 149/84 H 96 01/23/20 08:00 79 01/23/20 04:36 36.9 C 70 18 154/94 H 95 Laboratory Results Laboratory Results - last 24 hr 01/23/20 01/23/20 01/23/20 06:17 06:17 12:23 WBC 14.06 H RBC 3.24 L Hgb 7.5 L Hct 25.2 L MCV 77.8 L MCH 23.1 L MCHC 29.8 L RDW Std Deviation 53.5 H RDW Coeff of Mary 18.5 H Plt Count 269 MPV 10.2 Immature Gran % (Auto) 0.7 Neut % (Auto) 87.3 Lymph % (Auto) 7.8 [place]comb % (Auto) 3.4 Eos % (Auto) 0.4 Baso % (Auto) 0.4 Neut # (Auto) 12.27 H Lymph # (Auto) 1.10 L [place]comb # (Auto) 0.48 Eos # (Auto) 0.06 Baso # (Auto) 0.05 Immature Gran # (Auto) 0.10 H RBC Morphology Unremarkable Sodium 144 Potassium 3.7 Chloride 118 H Carbon Dioxide 20 L Anion Gap 6.0 BUN 15 Creatinine 1.17 Est Cr Clr Drug Dosing 56.5 Est GFR ( Amer) 59.9 Est GFR (Non-Af Amer) 51.7 BUN/Creatinine Ratio 13.0 Glucose 94 Calcium 8.0 L Blood Type A Positive Blood Type Recheck Antibody Screen NEGATIVE Crossmatch See Detail 01/23/20 16:12 WBC RBC Hgb Hct MCV MCH MCHC RDW Std Deviation RDW Coeff of Mary Plt Count MPV Immature Gran % (Auto) Neut % (Auto) Lymph % (Auto) Lipscomb % (Auto) Eos % (Auto) Baso % (Auto) Neut # (Auto) Lymph # (Auto) [place]comb # (Auto) Eos # (Auto) Baso # (Auto) Immature Gran # (Auto) RBC Morphology Sodium Potassium Chloride Carbon Dioxide Anion Gap BUN Creatinine Est Cr Clr Drug Dosing Est GFR ( Amer) Est GFR (Non-Af Amer) BUN/Creatinine Ratio Glucose Calcium Blood Type Blood Type Recheck A Positive Antibody Screen Crossmatch
[2020-01-23] MEDS ORDERED: Nursing to Pharmacy Communication SCH (18:15)
[2020-01-24 06:34] LABS: Basophils # (auto) 0.04 K/uL (0-0.2); Basophils % (auto) 0.5 %; Eosinophils % (auto) 1.3 %; Hematocrit (blood only) 26.6 % (37-47); Hemoglobin 8.2 g/dL (12.0-16.0); Immature Granulocytes # (auto) 0.03 K/uL (0.00-0.02); Immature Granulocytes % (auto) 0.4 %; Lymphocytes # (auto) 1.32 K/uL (1.2-3.4); Lymphocytes % (auto) 16.6 %; Mean Corpuscular Hemoglobin 24.1 pg (25-34); Mean Corpuscular Hgb Conc 30.8 g/dL (32-36); Mean Corpuscular Volume 78.2 fL (80-100); Mean Platelet Volume 10.3 fL (7.4-10.4); Monocytes # (auto) 0.65 K/uL (0.11-0.59); Monocytes % (auto) 8.2 %; Neutrophils # (auto) 5.82 K/uL (1.4-6.5); Platelet Count 230 K/uL (130-400); RDW Coefficient of Variation 18.4 % (11.5-14.5); RDW Standard Deviation 53.2 fL (36.4-46.3); White Blood Count 7.96 K/uL (4.8-10.8)
[2020-01-24 07:08] LABS: BUN Creatinine Ratio 10.5 (10-20); Calcium 8.7 mg/dl (8.5-10.1); Est GFR (African American) 81.2; Potassium 3.6 mmol/L (3.5-5.1)
[2020-01-24] MEDS: COLESTIPOL HCL 1 GM TAB PO SCH (08:11)
[2020-01-24] MEDS: cefTRIAXone SODIUM 2,000 MG in DEXTROSE 5% 50 ML IV SCH (08:15)
[2020-01-24] MEDS: PANTOprazole 40 MG TAB PO SCH (09:23)
--- NOTE | 2020-01-24 11:55 | Hospitalist Progress Note ---
Date of Service January 24, 2020 Assessment & Plan (1) Sepsis: (2) Bacteremia: (3) Right ureteral stone: 59-year-old female with history of gastric bypass for obesity, presenting with fever, UTI. Sepsis secondary to E. coli UTI, E. coli bacteremia Right ureteral stone Status post cystoscopy with ureteral stent placement 01/21/[address] abdomen pelvis: 1. 5 mm distal right ureteral calculus which results in moderate hydroureteronephrosis and a delayed nephrogram. 2. Hypodensities within left renal sinus which favor parapelvic cysts. Hydronephrosis is considered less likely. An 8 mm calcification within the left renal sinus which is indeterminate but favors a nonobstructing calculus. 4 mm left lower pole renal calculus Blood cultures gram-E. coli, pansensitive Urine culture E. coli pansensitive Given IV Zosyn then transition to IV ceftriaxone while admitted Afebrile, leukocytosis resolved, clinically improved Discharge on cefdinir 300 mg every 12 hours x9 more days to complete 14 days of therapy Repeat urine culture and blood culture after completion of antibiotic course Follow-up with urologist as an outpatient in 1 to 2 weeks Acute renal failure, likely secondary to obstructive uropathy, sepsis Creatinine improved from 1.5 to 0.9 Back to baseline after treatment of stent placement, treatment of infection Repeat BMP on follow-up with PCP next week Iron deficiency anemia, history of gastric bypass surgery Hemoglobin decreased from 9.8 to 7.5, positive with some dyspnea on exertion Given 1 unit of packed RBCs, hemoglobin improved to 8.2, dyspnea also improved Specialty Molder consulted Status post EGD: Unrevealing Impression: - Normal esophagus. - Gastric bypass. Gastrojejunal anastomosis characterized by healthy appearing mucosa and no ulceration. - Normal examined jejunum. Recommend outpatient colonoscopy Iron level 6 Vitamin B12 and folate normal IV iron given Start ferrous sulfate twice daily Repeat CBC on follow-up with PCP next week, repeat iron levels in 4 to 6 weeks Diarrhea, history of gastric bypass surgery C. difficile negative Stool cultures negative Consulted, recommend colestipol twice a day Resolved Dry cough COVID screen negative Lungs clear to auscultation History of smoking Trial of Flonase for postnasal drip Trial of Protonix 40 mg p.o. daily for possible component of GERD Chest x-ray: Pending DVT prophylaxis SCDs for now in light of possible GI bleed Disposition Lives at home with family Anticipate discharge to home when medically stable Admission and Anticipated Discharge Date Admission Date: January 21, 2020 Subjective Follow-up for UTI, bacteremia, anemia, other problems noted below Seen resting in bed, comfortable, not in distress, and in good spirits States she feels much better overall No backslash flank pain, no vomiting urination No fevers or chills Denies weakness, dizziness, chest pain, palpitations Shortness of breath improved Still having some dry cough-unchanged from baseline Denies other symptoms Review of Systems Review of Systems: All systems reviewed & are unremarkable except as noted in Subjective Physical Exam Physical Exam: General- oriented x 3, not in distress, speaks in sentences with no effort or accessory muscle use Eyes- anicteric Neck- no JVD Lungs- clear breath sounds bilaterally, no crackles, no wheezing Heart- normal rate, regular rhythm; no murmurs Abdomen- normal bowel sounds, nondistended, soft, nontender Extremities- no pretibial edema, no calf tenderness Neuro- alert, oriented x 3; no gross focal neurologic deficits Skin- warm & dry Results & Data Results & Data ([facility]) Vital Signs (Past 12 Hours) Vital Signs Temp Pulse Pulse Resp BP Pulse Ox 01/24/20 08:14 37.1 C 73 18 156/82 H 94 01/24/20 08:00 54 L 01/24/20 03:51 37.2 C 79 16 159/83 H 95 01/24/20 00:02 68 01/23/20 23:58 36.6 C 69 16 159/89 H 97 Laboratory Results Laboratory Results - last 24 hr 01/23/20 01/23/20 01/24/20 12:23 16:12 06:04 WBC 7.96 RBC 3.40 L Hgb 8.2 L Hct 26.6 L MCV 78.2 L MCH 24.1 L MCHC 30.8 L RDW Std Deviation 53.2 H RDW Coeff of Mary 18.4 H Plt Count 230 MPV 10.3 Immature Gran % (Auto) 0.4 Neut % (Auto) 73.0 Lymph % (Auto) 16.6 [place] % (Auto) 8.2 Eos % (Auto) 1.3 Baso % (Auto) 0.5 Neut # (Auto) 5.82 Lymph # (Auto) 1.32 [place] # (Auto) 0.65 H Eos # (Auto) 0.10 Baso # (Auto) 0.04 Immature Gran # (Auto) 0.03 H Sodium Potassium Chloride Carbon Dioxide Anion Gap BUN Creatinine Est Cr Clr Drug Dosing Est GFR ( Amer) Est GFR (Non-Af Amer) BUN/Creatinine Ratio Glucose Calcium Blood Type A Positive Blood Type Recheck A Positive Antibody Screen NEGATIVE Crossmatch See Detail 01/24/20 06:04 WBC RBC Hgb Hct MCV MCH MCHC RDW Std Deviation RDW Coeff of Mary Plt Count MPV Immature Gran % (Auto) Neut % (Auto) Lymph % (Auto) [place] % (Auto) Eos % (Auto) Baso % (Auto) Neut # (Auto) Lymph # (Auto) [place] # (Auto) Eos # (Auto) Baso # (Auto) Immature Gran # (Auto) Sodium 144 Potassium 3.6 Chloride 117 H Carbon Dioxide 19 L Anion Gap 8.0 BUN 10 D Creatinine 0.91 Est Cr Clr Drug Dosing 73.0 Est GFR ( Amer) 81.2 Est GFR (Non-Af Amer) 70.0 BUN/Creatinine Ratio 10.5 Glucose 79 Calcium 8.7 Blood Type Blood Type Recheck Antibody Screen Crossmatch
--- NOTE | 2020-01-24 12:17 | Discharge Summary ---
Date of Service January 24, 2020 Admission HPI Per Admitting Provider CHIEF COMPLAINT: Sepsis, obstructive kidney stone, UTI HISTORY OF PRESENT ILLNESS: This is a 59-year-old female with past medical history significant for status post gastric bypass surgery for obesity, family history of diabetes, comes because of nausea, vomiting, abdominal pain going for about 1 day. She had several episodes vomiting and diarrhea in the ER, later she had a temp spike. There is no leukocytosis, but there is a lymphopenia. Lactate was normal at 1.8. Her urine came as positive leukocyte esterase, positive nitrate and +[address] scan of the abdomen and pelvis showed [id number] hydronephrosis and hydroureter due to stones in the right UV junction measuring 4.9 mm and stones on the left kidney. The patient is very shaky and having lot of chills when I saw the patient and she was not able to answer most of the questions. Already Urology was called by the ER and Dr. Cast came to take her to the OR. The patient says no loss of sense of smell or taste. May be has some runny nose. She has some dry cough in the ER. Denies any shortness of breath. Denies any chest pain. Complains of abdominal pain. No swelling in the legs seen. Ambulated okay in the ER. ALLERGIES: ZOFRAN. PAST MEDICAL HISTORY: As mentioned above. PAST SURGICAL HISTORY: Colonoscopy, EGD, laparoscopic procedure of liver, laparoscopic gastric bypass surgery, laparoscopic cholecystectomy, ligation of oviducts. MEDICATIONS: As per the [facility], she is on meclizine 25 mg p.o. t.i.d. p.r.n., vitamin B12 1000 mcg injections every 30 days, Caltrate plus vitamin D 1 tablet b.i.d., Flintstones once daily. FAMILY HISTORY: Significant for mother had diabetes. Father had heart disorder. Daughter has ovarian cancer. SOCIAL HISTORY: No smoking. Alcohol occasional. No drug use. REVIEW OF SYSTEMS: As per HPI, could not get to complete review of systems since the patient seems to be very shaky and chills. Somewhat lethargic. Admission Exam Per Admitting Provider PHYSICAL EXAMINATION: VITAL SIGNS: Temperature T-max 37.5, pulse 103, respiratory rate in 20s and 30s, blood pressure 136/83, oxygen 93% on room air. HEENT: Pupils equal, round, reactive to light. NECK: No neck masses seen. CARDIOVASCULAR: S1, S2 heard. Tachycardia. No murmurs. RESPIRATORY SYSTEM: Normal AP diameter. No accessory muscle use. No wheezing, no crackles. ABDOMEN: Soft, bowel sounds present. No distention, no guarding. CENTRAL NERVOUS SYSTEM: The patient is alert and awake. Obeys commands. Ambulated to the ER okay. Moves extremities. EXTREMITIES: No edema, no erythema seen. Principal Diagnosis Sepsis secondary to E. coli UTI, E. coli bacteremia Right ureteral stone Status post cystoscopy with ureteral stent placement 01/21/2020 Dr. Petar Cast Discharge Exam General- oriented x 3, not in distress, speaks in sentences with no effort or accessory muscle use Eyes- anicteric Neck- no JVD Lungs- clear breath sounds bilaterally, no crackles, no wheezing Heart- normal rate, regular rhythm; no murmurs Abdomen- normal bowel sounds, nondistended, soft, nontender Extremities- no pretibial edema, no calf tenderness Neuro- alert, oriented x 3; no gross focal neurologic deficits Skin- warm & dry Discharge Data Allergies Allergy/AdvReac Type Severity Reaction Status Date / Time ondansetron [From Zofran] AdvReac Unknown Vomiting Verified 01/23/20 12:15 Consultations 01/21/20 01:12 Consult Urology Stat ED Decision to Admit Stat 01/21/20 03:59 Consult Case Management - Discharge Planning Routine 01/22/20 12:18 Consult Gastroenterology Routine Procedures Performed Operation Date: 01/21/20 03:00 Actual Procedures p Cystoscopy, Right Ureteral Stent Placement, Stone Extraction(Right) - Sukhdeep Cast MD Operation Date: 01/23/20 16:55 Actual Procedures p Esophagogastroduodenoscopy - Talat Hearn MD Ordered Studies 01/20/20 23:40 CT abd pelvis IV con only Urgent COMPARISON STUDY: CT of the abdomen and pelvis December 23, 2018. Pelvic ultrasound November 06, 2018. TECHNIQUE: Following IV administration of 94 mL of Optiray-320, axial images of the abdomen and pelvis were obtained from the lung bases to the proximal femurs. Images were reviewed in the axial, sagittal, and coronal planes. IV contrast was administered without complication. Automated exposure control was utilized for the study. A dose lowering technique was utilized adhering to the principles of ALARA. CT DOSE: 910.63 mGy.cm FINDINGS: A 5 mm distal right ureteral calculus results in moderate right hydroureteronephrosis. The right nephrogram is delayed. Note is made of an 8 mm calcification within the left renal sinus. This favors a nonobstructing urinary calculus. There is an additional 4 mm left lower pole renal calculus. Hypodensities within left renal sinus favor parapelvic cysts. Hydronephrosis is considered less likely. There is no evidence for a bowel obstruction status post Pascual-en-Y gastric bypass. The liver, spleen, adrenal glands and pancreas are unremarkable. Caliber of the common bile duct is at the upper limits of normal following cholecystectomy. There is no lymphadenopathy. There is no ascites. There are no suspicious osseous lesions. IMPRESSION: 1. 5 mm distal right ureteral calculus which results in moderate hydroureteronephrosis and a delayed nephrogram. 2. Hypodensities within left renal sinus which favor parapelvic cysts. Hydronephrosis is considered less likely. An 8 mm calcification within the left renal sinus which is indeterminate but favors a nonobstructing calculus. 4 mm left lower pole renal calculus. 01/21/20 01:53 FL KUB Routine 01/21/20 02:00 FL fluoroscopy <1hr Routine CXR: COMPARISON: CT abdomen 12/23/2008 TECHNIQUE: PA and lateral views of the chest FINDINGS: Cardiomediastinal and hilar silhouettes are within normal limits. No pneumothorax, airspace consolidation or overt pulmonary edema. Trace pleural effusions. Bones of the chest appear grossly intact. Surgical clip projects over the upper abdomen. IMPRESSION: Trace pleural effusions with otherwise unremarkable exam. Hospital Course (1) Sepsis: (2) Bacteremia: (3) Right ureteral stone: 59-year-old female with history of gastric bypass for obesity, presenting with fever, UTI. Sepsis secondary to E. coli UTI, E. coli bacteremia Right ureteral stone Status post cystoscopy with ureteral stent placement 01/21/[address] abdomen pelvis: 1. 5 mm distal right ureteral calculus which results in moderate hydroureteronephrosis and a delayed nephrogram. 2. Hypodensities within left renal sinus which favor parapelvic cysts. Hydronephrosis is considered less likely. An 8 mm calcification within the left renal sinus which is indeterminate but favors a nonobstructing calculus. 4 mm left lower pole renal calculus Blood cultures gram-E. coli, pansensitive Urine culture E. coli pansensitive Given IV Zosyn then transition to IV ceftriaxone while admitted Afebrile, leukocytosis resolved, clinically improved Discharge on cefdinir 300 mg every 12 hours x9 more days to complete 14 days of therapy Repeat urine culture and blood culture after completion of antibiotic course Follow-up with urologist as an outpatient in 1 to 2 weeks Acute renal failure, likely secondary to obstructive uropathy, sepsis Creatinine improved from 1.5 to 0.9 Back to baseline after treatment of stent placement, treatment of infection Repeat BMP on follow-up with PCP next week Iron deficiency anemia, history of gastric bypass surgery Hemoglobin decreased from 9.8 to 7.5, positive with some dyspnea on exertion Given 1 unit of packed RBCs, hemoglobin improved to 8.2, dyspnea also improved Permit Specialist consulted Status post EGD: Unrevealing Impression: - Normal esophagus. - Gastric bypass. Gastrojejunal anastomosis characterized by healthy appearing mucosa and no ulceration. - Normal examined jejunum. Recommend outpatient colonoscopy Iron level 6 Vitamin B12 and folate normal IV iron given Start ferrous sulfate twice daily Repeat CBC on follow-up with PCP next week, repeat iron levels in 4 to 6 weeks Diarrhea, history of gastric bypass surgery C. difficile negative Stool cultures negative Consulted, recommend colestipol twice a day Resolved Dry cough History of smoking Chest x-ray: trace pleural effusion COVID screen negative Lungs clear to auscultation Trial of Flonase for postnasal drip Trial of Protonix 40 mg p.o. daily for possible component of GERD Disposition Lives at home with family d/c home ff up with PCP and Urologist in 1-2 weeks per d/c instructions Total Time Total Time Spent Total Time Spent (In Minutes): >30 minutes Discharge Plan Discharge Items Patient Disposition: Home - Self-Care Reason For Visit: VOMITING Discharge Diagnosis: URINARY TRACT AND BLOODSTREAM INFECTION ANEMIA, IRON DEFICIENCY Activity: Resume your previous activity Activity Comment: Resume activity gradually as tolerated Lifting: Wait until after follow-up appointment Exercise/Sports: Wait until after follow-up appointment Driving/Machine Use: No driving until reevaluated by primary care physician Non-emergency contact: Primary Care Provider Call non-emergency contact if: you have any medication questions, your symptoms worsen, your pain is not controlled, your pain is worsening, your pain is unusual for you, your pain is concerning for you and you have a fever Follow-up/Referrals: Sukhdeep Cast MD [Physician] - (dr. cast's office will call patient with appointment. ) Navya Sarabia DO [Primary Care Provider] - 01/30/20 10:55 am Talat Hearn MD [Hospitalist] - Diet: Heart Healthy Addtl Attending Provider Instructions: Please review your new medication list and follow instructions carefully. Your new medications include: Cefdinir-antibiotic for urinary tract and bloodstream infection Culturelle- probiotic to prevent diarrhea caused by antibiotics Colestipol- to control diarrhea Ferrous sulfate-iron supplement to replace low iron level Fluticasone nasal spray- for postnasal drip may contributing to dry cough Initial: Two sprays (27.5 mcg/spray) per nostril once daily (110 mcg/day); after 1 week, may adjust to 1 or 2 sprays per nostril once daily (55 to 110 mcg/day). Do not use for more than 6 months unless instructed by healthcare provider. Protonix-antacid to prevent gastric reflux which may be contributing to dry cough; please take at least 30 minutes before first meal of the day Please call your primary care physician or return to the ER immediately if with recurrence or worsening of symptoms including, Fever or chills, nausea or vomiting, abdominal/flank/back pain, problems with urination, Any signs of bleeding including black or bloody stools, Shortness of breath, weakness, dizziness. Follow-up with your primary care physician Dr. Sarabia next week as outlined above. Follow-up with the urologist Dr. Petar Cast in 1-2 weeks. Please call his office for an appointment. Contact information outlined above. We will also need a repeat colonoscopy by [facility] quality control manager. This can be arranged by your primary care physician. Pending Studies at Discharge: Yes Studies:: Repeat blood work-complete blood count on follow-up with primary care physician next week Repeat iron level in about 4 weeks time care of primary care physician Colonoscopy to be done as an outpatient by [facility] quality control manager Stand-Alone Forms: My [employer], Smoking Cessation Medications and DC Order Prescriptions: New colestipol [Colestid] 1 gram Tablet 1 g PO BID Qty: 60 RF: 0 pantoprazole 40 mg Tablet,Delayed Release (Dr/Ec) 40 mg PO DAILY Qty: 30 RF: 0 cefdinir 300 mg capsule 300 mg PO Q12H 9 Days Qty: 18 RF: 0 Culturelle 10 billion cell capsule 1 cap PO DAILY Qty: 20 RF: 0 ferrous sulfate 325 mg (65 mg iron) tablet 325 mg PO BID Qty: 60 RF: 0 fluticasone propionate [Flonase Allergy Relief] 50 mcg/actuation spray,suspension 2 spray intranasal DAILY Qty: 16 RF: 0 No Action No Known Home Medications RF: 0 Discharge Orders: Discharge Order (Routine); Ordered 01/24/20 Ordered By: Michelet Tapia Admission Data Admit Date/Time: 01/21/20 02:11 Attending Provider: Michelet Tapia Admit Provider: Brown Rangel Primary Care Provider: Nvaya Sarabia Other Providers: Sukhdeep Cast ; Brown Rangel ; Tad Wakefield Other Interventions: Discharge Summary Assessment (RN) Last Done: 01/24/20 14:11
--- NOTE | 2020-01-24 14:21 | XRay Report ---
XR chest 2V PA/lateral HISTORY: 59 years-old Female cough, r/o pneumonia, mass acute cough with clinical concern for pneumo jacinda COMPARISON: CT abdomen 12/23/2008 TECHNIQUE: PA and lateral views of the chest FINDINGS: Cardiomediastinal and hilar silhouettes are within normal limits. No pneumothorax, airspace consolida tion or overt pulmonary edema. Trace pleural effusions. Bones of the chest appear grossly intact. Xin gical clip projects over the upper abdomen. IMPRESSION: Trace pleural effusions with otherwise unremarkable exam. ACT 112: Negative or not required by law. The above report was generated using voice recognition software. It may contain grammatical, syntax o r spelling errors. Electronically signed by: Geronimo Thakur M.D. 01/24/2020 2:19 PM
[2020-01-26 03:28] LABS: Component 2 DNR; Source URETER STONE
== END 2020-01-24 15:55 | disposition home or self-care (01) | DRG 854 ==
LOC: ED 21:00 → OR 01-21 02:16 → 2S 01-21 02:17 → SUATTDRO 01-21 02:17

== ENCOUNTER 2020-03-23 12:09 | Observation (INO) ==
[2020-03-23] MEDS ORDERED: MoRPHine SULFATE 4 MG/ML 1 ML CARP\\VIAL IV STA (12:31)
[2020-03-23] MEDS ORDERED: METOCLOPRAMIDE HCL INJ 5 MG/ML 2 ML VIAL IV STA (12:31)
[2020-03-23] MEDS ORDERED: SODIUM CHLORIDE 0.9% 1000ML 1,000 ML IV ONE (12:31)
--- NOTE | 2020-03-23 12:38 | Emergency Department Note ---
History of Present Illness General Chief complaint: Kidney Stone Stated complaint: KIDNEY STONES ALOT OF PAIN Time Seen by Provider: 03/23/20 12:23 Source: patient History of Present Illness Provider complaint: Left flank pain Onset (ago): day(s) Location: back Radiation: non-radiation Severity: severe Pain Consistency: + intermittent and + colicky Maximum Pain Intensity: 9 Quality: + sharp Relieved By: + none Associated symptoms: + nausea/vomiting; no chest pain, no cough and no fever/chills This is a 60-year-old female with a history of a kidney stone on the left side status post lithotripsy 4 days ago presenting with severe left flank pain interm ittently since yesterday morning. The pain is sharp. It is located in her left flank without radiation. She states it feels just like her prior renal colic. It is associated with vomiting and shortness of breath due to the pain. She denies any fever, cough, chest pain, known exposure to COVID-19, or diarrhea. She states she had lithotripsy because she had an 8 mm stone. Home Medications Medication Instructions Recorded Confirmed Type calcium carbonate [Calcium 500] 500 mg PO QAM 03/11/20 03/23/20 History colestipol [Colestid] 1 g PO BID 03/11/20 03/23/20 Rx ferrous sulfate 325 mg PO BID 03/11/20 03/23/20 History fluticasone propionate [Flonase 2 spray INTRANASAL DAILY PRN 03/11/20 03/23/20 History Allergy Relief] pantoprazole 40 mg PO QAM 03/11/20 03/23/20 History vitamin W69-sytct acid 1 tab PO QAM 03/11/20 03/23/20 History hydrocodone-acetaminophen 1 tab PO Q6H PRN #15 tab 03/19/20 03/23/20 Rx Allergies Allergy/AdvReac Type Severity Reaction Status Date / Time ondansetron [From Zofran] AdvReac Unknown Vomiting Verified 03/23/20 14:24 Past Med/Surg History Medical History Anemia History of anesthesia reaction WITH GASTRIC BYPASS SURGERY, TOOK LONG TIME TO WAKE UP ( JULI[facility]N 2011) History of chest pain October 10, 2018...chest pain, dizziness & nausea...rested and resolved - no re- occurence since History of high cholesterol History of kidney stones History of varicella Surgical History History of colonoscopy History of cystoscopy History of dilatation and curettage History of esophagogastroduodenoscopy (EGD) History of eye surgery LASIK - BOTH History of gastric bypass History of tubal ligation History of wisdom tooth extraction S/P laparoscopic cholecystectomy Family History Mother Diabetes Sister Diabetes Brother Diabetes Grandmother (Maternal) Diabetes Social History Smoking Status: Never smoker Second Hand Exposure: No; Hx Alcohol Use: Yes Alcohol type: beer and wine Hx Substance Use: No Preferred Language: Yoruba Communication Ability: Effective Optics Engineer Required: No Beliefs That Will Affect Care: None marital status: Current Living Situation: Alone Feels Safe at Home: Yes Assistive Devices: None Review of Systems See HPI for pertinent positives & negatives. and A total of 10 systems reviewed and were otherwise negative Physical Exam Vital Signs Vital Signs - 24 hr 03/23/20 12:19 03/23/20 13:00 03/23/20 13:30 Temperature 36.4 C L Temperature Source Oral Pulse Rate 72 58 L Pulse Rate [Apical] 58 L Pulse Rate from SpO2 Sensor Pulse Rhythm Regular Pulse Strength Normal Respiratory Rate 22 18 20 Respiratory Effort / Characteristics Non-Labored Spontaneous Non-Labored Spontaneous Respiratory Depth Normal Normal Respiratory Pattern Regular Blood Pressure 196/92 H 180/61 H Blood Pressure [Right Arm] 204/77 H Blood Pressure Mean 126 84 Blood Pressure Mean [Right Arm] 119 Blood Pressure Position Sitting Pulse Oximetry 97 96 99 Oxygen Delivery Method Room Air Room Air Room Air Sepsis Recent Fever Within 48 Hours No Sepsis New/Unexplained Change in Mental Status No Sepsis Action Taken by Nursing No Action Required 03/23/20 13:47 03/23/20 14:01 03/23/20 14:30 Temperature Temperature Source Pulse Rate 58 L 54 L Pulse Rate [Apical] 53 L Pulse Rate from SpO2 Sensor Pulse Rhythm Pulse Strength Respiratory Rate 20 16 18 Respiratory Effort / Characteristics Respiratory Depth Respiratory Pattern Blood Pressure 151/73 H 156/63 H Blood Pressure [Right Arm] 170/61 H Blood Pressure Mean 86 82 Blood Pressure Mean [Right Arm] 97 Blood Pressure Position Pulse Oximetry 100 97 95 Oxygen Delivery Method Room Air Room Air Room Air Sepsis Recent Fever Within 48 Hours Sepsis New/Unexplained Change in Mental Status Sepsis Action Taken by Nursing 03/23/20 15:00 03/23/20 15:30 03/23/20 15:31 Temperature Temperature Source Pulse Rate 60 60 62 Pulse Rate [Apical] Pulse Rate from SpO2 Sensor 60 Pulse Rhythm Pulse Strength Respiratory Rate 15 16 15 Respiratory Effort / Characteristics Respiratory Depth Respiratory Pattern Blood Pressure 150/66 H 164/72 H Blood Pressure [Right Arm] Blood Pressure Mean 107 116 Blood Pressure Mean [Right Arm] Blood Pressure Position Pulse Oximetry 92 100 100 Oxygen Delivery Method Room Air Sepsis Recent Fever Within 48 Hours Sepsis New/Unexplained Change in Mental Status Sepsis Action Taken by Nursing 03/23/20 15:40 Temperature Temperature Source Pulse Rate 61 Pulse Rate [Apical] Pulse Rate from SpO2 Sensor 60 Pulse Rhythm Pulse Strength Respiratory Rate 15 Respiratory Effort / Characteristics Respiratory Depth Respiratory Pattern Blood Pressure Blood Pressure [Right Arm] Blood Pressure Mean Blood Pressure Mean [Right Arm] Blood Pressure Position Pulse Oximetry 100 Oxygen Delivery Method Sepsis Recent Fever Within 48 Hours Sepsis New/Unexplained Change in Mental Status Sepsis Action Taken by Nursing Constitutional: Vital signs reviewed. Eyes: Pupils are equal round reactive to light. Conjunctiva are noninjected. ENT: Pharynx is clear without erythema or exudate. Mucous membranes are sl ightly dry. Neck supple without meningeal signs. Respiratory: Clear to auscultation bilaterally. Breath sounds are equal bilaterally. Cardiovascular: Regular rate and rhythm. No rubs or gallops. GI: Soft, nondistended with tenderness in the left lower quadrant. No guarding. Bowel sounds are present. Musculoskeletal: No peripheral edema. No lower extremity tenderness. No CVA tenderness. Integumentary: No cyanosis. or jaundice. Neurological: The patient is awake and alert. No focal deficits. Psychiatric: Normal affect. Not anxious appearing. Course Administered Medications Discontinued Medications Hydromorphone HCl (Hydromorphone Inj 0.5 Mg/0.5 Ml Syr) 0.5 mg IV NOW STA Stop: 03/23/20 14:17 Last Admin: 03/23/20 14:40 Dose: 0.5 mg Documented by: [id number] Sodium Chloride (Nss 1000ml) 1,000 mls @ 999 mls/hr IV .Q1H1M ONE Stop: 03/23/20 13:31 Last Infusion: 03/23/20 13:58 Dose: 0 mls/hr Documented by: [id number] Admin: 03/23/20 12:58 Dose: 999 mls/hr Documented by: [id number] Ceftriaxone Sodium (Rocephin) 2,000 mg in 70 mls @ 140 mls/hr IV NOW STA Stop: 03/23/20 15:11 Last Infusion: 03/23/20 16:00 Dose: 0 mls/hr Documented by: [id number] Admin: 03/23/20 15:23 Dose: 140 mls/hr Documented by: [id number] Promethazine HCl (Phenergan) 12.5 mg in 50.5 mls @ 202 mls/hr IV NOW ONE Stop: 03/23/20 15:59 Last Admin: 03/23/20 16:07 Dose: Not Given Documented by: [id number] Ioversol (Optiray 320 125ml) 120 ml IV ONCE ONE Stop: 03/23/20 16:30 Last Admin: 03/23/20 16:29 Dose: 120 ml Documented by: [id number] Metoclopramide HCl (Metoclopramide Hcl Inj 5 Mg/Ml 2 Ml Vial) 10 mg IV NOW STA Stop: 03/23/20 12:32 Last Admin: 03/23/20 12:58 Dose: 10 mg Documented by: [id number] Morphine Sulfate (Morphine Sulfate 4 Mg/Ml 1 Ml Carp\Vial) 4 mg IV NOW STA Stop: 03/23/20 12:32 Last Admin: 03/23/20 12:58 Dose: 4 mg Documented by: [id number] Tamsulosin HCl (Tamsulosin Hcl 0.4 Mg Cap) 0.4 mg PO NOW ONE Stop: 03/23/20 14:43 Last Admin: 03/23/20 15:23 Dose: 0.4 mg Documented by: [id number] Medical Decision Making Differential Diagnosis Renal colic, obstructive uropathy, postprocedural pain, rouleaux, UTI Medical Records Attestation: I reviewed the patient's medical records. I did perform a limited focused review of portions of the patient's old chart on the electronic medical record. The patient underwent lithotripsy with Dr. Montiel on March 19. Home Medications Current Medication List: was personally reviewed by me Laboratory Data Attestation: I reviewed the patient's lab results. Result diagrams: 03/23/20 13:05 03/23/20 13:05 Lab Results 03/23/20 03/23/20 03/23/20 Range/Units 13:05 13:05 13:05 WBC 9.98 (4.8-10.8) K/uL RBC 4.24 (4.2-5.4) M/uL Hgb 11.9 L (12.0-16.0) g/dL Hct 37.1 (37-47) % MCV 87.5 (80-100) fL MCH 28.1 (25-34) pg MCHC 32.1 (32-36) g/dL RDW Std Deviation 63.2 H (36.4-46.3) fL RDW Coeff of Mary 20.1 H (11.5-14.5) % Plt Count 239 (130-400) K/uL MPV 10.7 H (7.4-10.4) fL Immature Gran % (Auto) 0.1 % Neut % (Auto) 76.1 % Lymph % (Auto) 15.4 % [place] % (Auto) 7.7 % Eos % (Auto) 0.4 % Baso % (Auto) 0.3 % Neut # (Auto) 7.59 H (1.4-6.5) K/uL Lymph # (Auto) 1.54 (1.2-3.4) K/uL [place] # (Auto) 0.77 H (0.11-0.59) K/uL Eos # (Auto) 0.04 (0-0.5) K/uL Baso # (Auto) 0.03 (0-0.2) K/uL Immature Gran # (Auto) 0.01 (0.00-0.02) K/uL Microcytosis Present D-Dimer (0-500) ug/L FEU Sodium 141 (136-145) mmol/L Potassium 3.2 L (3.5-5.1) mmol/L Chloride 110 H (98-107) mmol/L Carbon Dioxide 22 (21-32) mmol/L Anion Gap 9.0 (3-11) BUN 14 (7-18) mg/dl Creatinine 1.27 H (0.6-1.2) mg/dl Est Cr Clr Drug Dosing 49.2 ml/min Est GFR ( Amer) 53.9 Est GFR (Non-Af Amer) 46.5 BUN/Creatinine Ratio 11.3 (10-20) Glucose 110 H (70-99) mg/dl Calcium 9.5 (8.5-10.1) mg/dl Total Bilirubin 0.9 (0.2-1) mg/dl AST 21 (15-37) U/L ALT 22 (12-78) U/L Alkaline Phosphatase 102 (45-117) U/L CK-MB (CK-2) (0.5-3.6) ng/ml CK/CKMB % Calc Troponin I (0-0.045) ng/ml Total Protein 6.9 (6.4-8.2) gm/dl Albumin 3.3 L (3.4-5.0) gm/dl Globulin 3.6 (2.5-4.0) gm/dl Albumin/Globulin Ratio 0.9 (0.9-2) Lipase 117 (73-393) U/L Urine Color Yellow Urine Appearance Clear (Clear) Urine pH 8.0 H (4.5-7.5) Ur Specific [place] 1.019 (1.000-1.030) Urine Protein Negative (Negative) Urine Glucose (UA) Negative (Negative) Urine Ketones 2+ H (Negative) Urine Blood 1+ H (Negative) Urine Nitrite Negative (Negative) Urine Bilirubin Negative (Negative) Urine Urobilinogen Negative (Negative) Ur Leukocyte Esterase 1+ H (Negative) Urine WBC (Auto) 10-30 H (0-5) /hpf Urine RBC (Auto) 10-30 H (0-4) /hpf U Hyaline Cast (Auto) 1-5 (0-5) /lpf U Epithel Cells (Auto) >30 H (0-5) /lpf Urine Bacteria (Auto) Negative (Negative) SARS-CoV-2 Ag (Rapid) (Negative) 03/23/20 03/23/20 03/23/20 Range/Units 13:05 13:05 13:05 WBC (4.8-10.8) K/uL RBC (4.2-5.4) M/uL Hgb (12.0-16.0) g/dL Hct (37-47) % MCV (80-100) fL MCH (25-34) pg MCHC (32-36) g/dL RDW Std Deviation (36.4-46.3) fL RDW Coeff of Mary (11.5-14.5) % Plt Count (130-400) K/uL MPV (7.4-10.4) fL Immature Gran % (Auto) % Neut % (Auto) % Lymph % (Auto) % [place] % (Auto) % Eos % (Auto) % Baso % (Auto) % Neut # (Auto) (1.4-6.5) K/uL Lymph # (Auto) (1.2-3.4) K/uL [place] # (Auto) (0.11-0.59) K/uL Eos # (Auto) (0-0.5) K/uL Baso # (Auto) (0-0.2) K/uL Immature Gran # (Auto) (0.00-0.02) K/uL Microcytosis D-Dimer 650 H* (0-500) ug/L FEU Sodium (136-145) mmol/L Potassium (3.5-5.1) mmol/L Chloride (98-107) mmol/L Carbon Dioxide (21-32) mmol/L Anion Gap (3-11) BUN (7-18) mg/dl Creatinine (0.6-1.2) mg/dl Est Cr Clr Drug Dosing ml/min Est GFR ( Amer) Est GFR (Non-Af Amer) BUN/Creatinine Ratio (10-20) Glucose (70-99) mg/dl Calcium (8.5-10.1) mg/dl Total Bilirubin (0.2-1) mg/dl AST (15-37) U/L ALT (12-78) U/L Alkaline Phosphatase (45-117) U/L CK-MB (CK-2) < 1.0 Cancelled (0.5-3.6) ng/ml CK/CKMB % Calc Not Reportable Cancelled Troponin I 0.032 (0-0.045) ng/ml Total Protein (6.4-8.2) gm/dl Albumin (3.4-5.0) gm/dl Globulin (2.5-4.0) gm/dl Albumin/Globulin Ratio (0.9-2) Lipase (73-393) U/L Urine Color Urine Appearance (Clear) Urine pH (4.5-7.5) Ur Specific [place] (1.000-1.030) Urine Protein (Negative) Urine Glucose (UA) (Negative) Urine Ketones (Negative) Urine Blood (Negative) Urine Nitrite (Negative) Urine Bilirubin (Negative) Urine Urobilinogen (Negative) Ur Leukocyte Esterase (Negative) Urine WBC (Auto) (0-5) /hpf Urine RBC (Auto) (0-4) /hpf U Hyaline Cast (Auto) (0-5) /lpf U Epithel Cells (Auto) (0-5) /lpf Urine Bacteria (Auto) (Negative) SARS-CoV-2 Ag (Rapid) (Negative) 03/23/20 Range/Units Unknown WBC (4.8-10.8) K/uL RBC (4.2-5.4) M/uL Hgb (12.0-16.0) g/dL Hct (37-47) % MCV (80-100) fL MCH (25-34) pg MCHC (32-36) g/dL RDW Std Deviation (36.4-46.3) fL RDW Coeff of Mary (11.5-14.5) % Plt Count (130-400) K/uL MPV (7.4-10.4) fL Immature Gran % (Auto) % Neut % (Auto) % Lymph % (Auto) % [place] % (Auto) % Eos % (Auto) % Baso % (Auto) % Neut # (Auto) (1.4-6.5) K/uL Lymph # (Auto) (1.2-3.4) K/uL [place] # (Auto) (0.11-0.59) K/uL Eos # (Auto) (0-0.5) K/uL Baso # (Auto) (0-0.2) K/uL Immature Gran # (Auto) (0.00-0.02) K/uL Microcytosis D-Dimer (0-500) ug/L FEU Sodium (136-145) mmol/L Potassium (3.5-5.1) mmol/L Chloride (98-107) mmol/L Carbon Dioxide (21-32) mmol/L Anion Gap (3-11) BUN (7-18) mg/dl Creatinine (0.6-1.2) mg/dl Est Cr Clr Drug Dosing ml/min Est GFR ( Amer) Est GFR (Non-Af Amer) BUN/Creatinine Ratio (10-20) Glucose (70-99) mg/dl Calcium (8.5-10.1) mg/dl Total Bilirubin (0.2-1) mg/dl AST (15-37) U/L ALT (12-78) U/L Alkaline Phosphatase (45-117) U/L CK-MB (CK-2) (0.5-3.6) ng/ml CK/CKMB % Calc Troponin I (0-0.045) ng/ml Total Protein (6.4-8.2) gm/dl Albumin (3.4-5.0) gm/dl Globulin (2.5-4.0) gm/dl Albumin/Globulin Ratio (0.9-2) Lipase (73-393) U/L Urine Color Urine Appearance (Clear) Urine pH (4.5-7.5) Ur Specific [place] (1.000-1.030) Urine Protein (Negative) Urine Glucose (UA) (Negative) Urine Ketones (Negative) Urine Blood (Negative) Urine Nitrite (Negative) Urine Bilirubin (Negative) Urine Urobilinogen (Negative) Ur Leukocyte Esterase (Negative) Urine WBC (Auto) (0-5) /hpf Urine RBC (Auto) (0-4) /hpf U Hyaline Cast (Auto) (0-5) /lpf U Epithel Cells (Auto) (0-5) /lpf Urine Bacteria (Auto) (Negative) SARS-CoV-2 Ag (Rapid) Negative (Negative) Imaging Data Radiologist's Impression: KUB CLINICAL HISTORY: Nephrolithiasis status post lithotripsy. FINDINGS: 2 AP supine abdominal radiographs are compared to study dated 03/18/2020. Cholecystectomy clips are seen in the right upper quadrant. There is no bowel obstruction. Moderate fecal retention is noted in the colon. Suture 2 projects over the upper abdomen. There is a 9 mm stone fragments projecting over the mid left ureter at the level of L4. 2 smaller fragments are suspected some what more proximally in the left ureter at the L3-L4 level and measure up to 4 mm. No calcifications are seen projecting over the right kidney. The bony structures appear intact. IMPRESSION: Stone fragments project over the mid left ureter and measure up to 9 mm. Electronically signed by: Robert Fried M.D. 03/23/2020 1:35 PM XR chest 1V portable HISTORY: 60 years-old Female cp acute atypical chest pain COMPARISON: Chest radiograph 01/24/2020 TECHNIQUE: Portable AP view of the chest FINDINGS: Cardiomediastinal and hilar silhouettes are within normal limits. There is no pneumothorax, pleural effusion, airspace consolidation or overt pulmonary edema. Minimal right shoulder rotator cuff calcific tendinosis. Bones of the chest appear grossly intact. Cholecystectomy. IMPRESSION: No acute process. ACT 112: Negative or not required by law. The above report was generated using voice recognition software. It may contain grammatical, syntax or spelling errors. Electronically signed by: Geronimo Thakur M.D. 03/23/2020 2:26 PM ECG Data Attestation: I personally reviewed and interpreted this ECG as follows: Indication: + chest pain Rate (beats per minute): 58 Rhythm: + sinus bradycardia ECG Intervals/blocks: + Short ID ECG ST segments: no ST elevation ECG Findings: no PVCs MDM Narrative I did evaluate the patient as noted above. IV access was established. I did place an order for continuous cardiac monitoring. The monitor showed I did treat the patient with IV morphine and Zofran. She was also given normal saline IV. I did order a KUB x-ray. I did review the images myself as well as the radiology report as described above. She has multiple stone fragments projecting over the mid left ureter measuring up to 9 mm. I did order a urine analysis. I did order and review the patient's blood work as noted in the electronic medical record. Hemoglobin is 11.9. Her white blood cell count is not elevated. She has hypokalemia with a potassium of 3.2. Creatinine is elevated at 1.27. While in the emergency department she developed several episodes of intermittent chest tightness. She had some shortness of breath and sweating with it. It is now gone. She is still having flank pain and so she was treated with Dilaudid IV. I did order and personally review the patient's 12-lead EKG as described above. She has no acute ischemic changes on twelve-lead EKG. I did order and personally reviewed the images of the patient's chest x-ray as described above. Chest x-ray is unremarkable. I did discuss the test results with the patient. She is currently not having any chest discomfort. I did recommend further work-up in the hospital as well as hospitalization for pain control and possible urologic intervention. I did speak to Veda of urology who spoke to Dr. Martins about the case. He recommended placing the patient on antibiotics and Flomax and keeping her n.p.o. in case they need to place a stent. I did treat the patient with Rocephin 2 g IV. I did discuss the plan with the patient who is agreeable. I did discuss case with hospitalist and case supervisor. Impression & Plan Renal colic, Intractable back pain, Ureterolithiasis, Chest pain, Acute hypokalemia, Elevated serum creatinine Discharge Plan Visit Data Chief Complaint: Kidney Stone Stated Complaint: KIDNEY STONES ALOT OF PAIN ED Provider: Juan Daniel Buchanan Discharge Problem: Renal colic, Intractable back pain, Ureterolithiasis, Chest pain, Acute hypokalemia, Elevated serum creatinine Patient Disposition: Being Evaluated by Hospitalist Forms Stand Alone Forms: My [facility] Prescriptions Prescriptions: No Action calcium carbonate [Calcium 500] 500 mg calcium (1,250 mg) Tablet 500 mg PO QAM RF: 0 vitamin [id number] acid 500-400 mcg Tablet 1 tab PO QAM RF: 0 pantoprazole 40 mg tablet,delayed release (DR/EC) 40 mg PO QAM RF: 0 ferrous sulfate 325 mg (65 mg iron) tablet 325 mg PO BID RF: 0 fluticasone propionate [Flonase Allergy Relief] 50 mcg/actuation spray,suspension 2 spray intranasal DAILY PRN (Reason: Allergy Symptoms) RF: 0 hydrocodone-acetaminophen 5-325 mg tablet 1 tab PO Q6H PRN (Reason: pain) Qty: 15 RF: 0 Referrals Referrals: Navya Sarabia DO [Primary Care Provider] - Discharge Problem: Chest pain Qualifiers: Chest pain type: unspecified Qualified Code(s): R07.9 - Chest pain, unspecified
[2020-03-23 13:18] LABS: Basophils # (auto) 0.03 K/uL (0-0.2); Basophils % (auto) 0.3 %; Eosinophils # (auto) 0.04 K/uL (0-0.5); Eosinophils % (auto) 0.4 %; Hematocrit (blood only) 37.1 % (37-47); Hemoglobin 11.9 g/dL (12.0-16.0); Immature Granulocytes # (auto) 0.01 K/uL (0.00-0.02); Immature Granulocytes % (auto) 0.1 %; Lymphocytes # (auto) 1.54 K/uL (1.2-3.4); Lymphocytes % (auto) 15.4 %; Mean Corpuscular Hemoglobin 28.1 pg (25-34); Mean Corpuscular Hgb Conc 32.1 g/dL (32-36); Mean Corpuscular Volume 87.5 fL (80-100); Mean Platelet Volume 10.7 fL (7.4-10.4); Monocytes # (auto) 0.77 K/uL (0.11-0.59); Monocytes % (auto) 7.7 %; Neutrophils # (auto) 7.59 K/uL (1.4-6.5); Neutrophils % (auto) 76.1 %; Platelet Count 239 K/uL (130-400); RDW Coefficient of Variation 20.1 % (11.5-14.5); RDW Standard Deviation 63.2 fL (36.4-46.3); Red Blood Count 4.24 M/uL (4.2-5.4); White Blood Count 9.98 K/uL (4.8-10.8)
[2020-03-23 13:26] LABS: Appearance Urine Clear (Clear); Bacteria Urine Automated Negative (Negative); Bilirubin Urine Negative (Negative); Blood Urine 1+ (Negative); Color Urine Yellow; Epithelial Cell Urine Auto >30 /lpf (0-5); Glucose Urine UA Negative (Negative); Ketones Urine 2+ (Negative); Leukocyte Esterase Urine 1+ (Negative); Nitrite Urine Negative (Negative); Protein Urine Negative (Negative); Specific Gravity Urine 1.019 (1.000-1.030); Urobilinogen Urine Negative (Negative)
[2020-03-23 13:35] LABS: Albumin Level 3.3 gm/dl (3.4-5.0); BUN Creatinine Ratio 11.3 (10-20); Calcium 9.5 mg/dl (8.5-10.1); Creatinine Clr Calc Pharmacy 49.2 ml/min; Est GFR (African American) 53.9; Est GFR (Non-African American) 46.5; Potassium 3.2 mmol/L (3.5-5.1)
[2020-03-23 13:36] LABS: Microcytosis Present
--- NOTE | 2020-03-23 13:36 | XRay Report ---
KUB CLINICAL HISTORY: Nephrolithiasis status post lithotripsy. FINDINGS: 2 AP supine abdominal radiographs are compared to study dated 03/18/2020. Cholecystectomy c lips are seen in the right upper quadrant. There is no bowel obstruction. Moderate fecal retention is noted in the colon. Suture 2 projects over the upper abdomen. There is a 9 mm stone fragments projec ting over the mid left ureter at the level of L4. 2 smaller fragments are suspected somewhat more pro ximally in the left ureter at the L3-L4 level and measure up to 4 mm. No calcifications are seen proj ecting over the right kidney. The bony structures appear intact. IMPRESSION: Stone fragments project over the mid left ureter and measure up to 9 mm. Electronically signed by: Robert Fried M.D. 03/23/2020 1:35 PM
[2020-03-23 13:38] LABS: Albumin Globulin Ratio 0.9 (0.9-2); Bilirubin,Total 0.9 mg/dl (0.2-1); Globulin 3.6 gm/dl (2.5-4.0); Total Protein 6.9 gm/dl (6.4-8.2)
[2020-03-23] MEDS ORDERED: HYDROmorphone INJ 0.5 MG/0.5 ML SYR IV STA (14:16)
--- NOTE | 2020-03-23 14:28 | XRay Report ---
XR chest 1V portable HISTORY: 60 years-old Female cp acute atypical chest pain COMPARISON: Chest radiograph 01/24/2020 TECHNIQUE: Portable AP view of the chest FINDINGS: Cardiomediastinal and hilar silhouettes are within normal limits. There is no pneumothorax, pleural e ffusion, airspace consolidation or overt pulmonary edema. Minimal right shoulder rotator cuff calcifi c tendinosis. Bones of the chest appear grossly intact. Cholecystectomy. IMPRESSION: No acute process. ACT 112: Negative or not required by law. The above report was generated using voice recognition software. It may contain grammatical, syntax o r spelling errors. Electronically signed by: Geronimo Thakur M.D. 03/23/2020 2:26 PM
[2020-03-23] MEDS ORDERED: cefTRIAXone SODIUM 2,000 MG/70 ML BAG IV STA (14:42)
[2020-03-23] MEDS ORDERED: TAMSULOSIN HCL 0.4 MG CAP PO ONE (14:42)
--- NOTE | 2020-03-23 15:15 | History & Physical Report ---
Date of Service March 23, 2020 Assessment & Plan (1) Ureterolithiasis: L ureteral stone fragements up to 9mm S/P ESWL by Dr. Montiel 03/19 now presents with renal colic, KAREN, Chest pain and hx of urosepsis and e. coli bacteremia admit to [facility] tele NPO after midnight consult urology continue IV rocephin 2g daily IVF 150cc/hr flomax 0.4mg daily (2) Chest pain: Pt developed substernal CP in ED. initial EKG, CK MB, Trop okay. Chest pain resolved on own prior to my examination. D dimer elevated - chest CTA ordered give ASA 324mg x 1 now monitor on tele cycle trops, repeat EKG ECHO in am. pt with strong family hx of CAD - father and brother [place] in 50s. (3) Acute hypokalemia: K 3.2 give 2 -10meq IV KCL in ED give 20meq KCL oral follow bmp (4) KAREN (acute kidney injury): cr 1.27 baseline 0.8 continue IVF 150cc/hr monitor renal fxn (5) Anemia: H/H stable 11.9/37.1 continue iron supplement and b12 (6) DVT prophylaxis: SQ Heparin x 1 dose this evening; will hold further doses due to likely procedure SCD/TEDS, reassess post op to resume chemical prophylaxis Disposition: admit to [facility] tele Follow up: PCP Dr. Sarabia upon discharge Pt was seen and examined in collaboration with Dr. Chowdhury, please see addendum History of Present Illness Chief Complaint: L sided flank pain x 1 day; Chest pain x 2 hours. Primary Care Provider: Navya Sarabia DO This is a 60 year old F who has a significant PMH of gastric bypass who was hospitalized December 2019 secondary to right ureteral stone, E. coli b acteremia and urosepsis. She required stent placement by urology. During his hospitalization she did become anemic requiring transfusion. She also underwent EGD which revealed grossly stable from prior gastric bypass which was removed. She was placed on ferrous sulfate if hemoglobin has trended up since discharge. She has been following outpt with [facility]. An 8mm L ureteral stone was discovered and she opted to undergo ESWL on 03/[address] Montiel. She was doing well until yesterday afternoon when she developed a dull pain to her left flank. Pain progressed that evening, but she was able to go to sleep last night. When she awoke this morning she had progressively worse left flank pain, waxed and waned, when present was described as sharp, 10/10, made improvement with walking and movement, and worsen with rest. Symptoms were associated with nausea and she had episode of vomiting last evening. She has not had anything to eat since last evening and has been drinking water today. Drinking water has made her nauseated. While in ED for left flank pain did improve with IV analgesia; however, when she returned from chest x-ray she developed substernal chest pain that radiated to her back. Pain would come and go and when present was a 5/10. Currently her pain is absent. She described it as a squeezing sensation. Symptoms made better with leaning forward. She denied any more symptoms with deep breathing or musculoskeletal movement. She did have associated clamminess but denies cassie diaphoresis, nausea, vomiting, palpitations, lightheadedness, dizziness or syncope. She denies any recent fever, chills, sweats, shortness breath at rest, ROD, abdominal pain, dysuria, increased urgency or frequency with urination, hematuria, melena or hematochezia. In ED patient remained hemodynamically stable. Lab work notable for hemoglobin 11.9, moderate 37.1, WBC 9.98k, K3.2, chloride 110, creatinine 1.27, glucose 110, urinalysis +1 blood, +1 leukocyte esterase. COVID-19 negative. Chest x-ray negative for acute abnormality. Patient developed chest pain while in ED. Initial EKG without acute ST change. CK-MB unremarkable. Troponin detectable at 0.032 but within limits. D-dimer elevated. Chest CTA ordered In ED she received 2 g IV Rocephin, IV morphine and Dilaudid and Reglan. Allergies Allergy/AdvReac Type Severity Reaction Status Date / Time ondansetron [From Zofran] AdvReac Unknown Vomiting Verified 03/23/20 14:24 Home Medications Medication Instructions Recorded Confirmed Type calcium carbonate [Calcium 500] 500 mg PO QAM 03/11/20 03/23/20 History colestipol [Colestid] 1 g PO BID 03/11/20 03/23/20 Rx ferrous sulfate 325 mg PO BID 03/11/20 03/23/20 History fluticasone propionate [Flonase 2 spray INTRANASAL DAILY PRN 03/11/20 03/23/20 History Allergy Relief] pantoprazole 40 mg PO QAM 03/11/20 03/23/20 History vitamin M30-rpacq acid 1 tab PO QAM 03/11/20 03/23/20 History hydrocodone-acetaminophen 1 tab PO Q6H PRN #15 tab 03/19/20 03/23/20 Rx Past Med/Surg History Medical History Anemia History of anesthesia reaction WITH GASTRIC BYPASS SURGERY, TOOK LONG TIME TO WAKE UP ( [facility] 2011) History of chest pain October 10, 2018...chest pain, dizziness & nausea...rested and resolved - no re- occurence since History of high cholesterol History of kidney stones History of varicella Surgical History History of colonoscopy History of cystoscopy History of dilatation and curettage History of esophagogastroduodenoscopy (EGD) History of eye surgery LASIK - BOTH History of gastric bypass History of tubal ligation History of wisdom tooth extraction S/P laparoscopic cholecystectomy Family History Mother Diabetes Sister Diabetes Brother Diabetes Grandmother (Maternal) Diabetes Social History Smoking Status: Never smoker Second Hand Exposure: No; Hx Alcohol Use: Yes Alcohol type: beer and wine Hx Substance Use: No Preferred Language: Icelandic Communication Ability: Effective Lay Out Inspector Required: No Beliefs That Will Affect Care: None marital status: Current Living Situation: Alone Feels Safe at Home: Yes Assistive Devices: None Review of Systems Review of Systems: All systems reviewed & are unremarkable except as noted in HPI & below Physical Exam Physical Exam: Constitutional: WD/WN, pale appearing, female, vitals as above, NAD, sitting up in bed, pleasant, conversing easily Head: Normocephalic, Atraumatic Eyes: PERRL, conjunctivae normal, anicteric sclerae ENMT: external ear and nose normal, oropharynx normal Neck: trachea midline, no thyromegaly normal visual inspection Respiratory: normal respiratory effort, lungs clear to auscultation, no wheeze, rales, rhonchi. Normal insp/exp effort, no accessory muscle use Cardiovascular: RRR, no murmur, no edema Vessels: no JVD or carotid bruit Chest: normal inspection of chest, chest pain not reproducible or made worse with deep inspiration Abdomen: normal bowel sounds, mild pain to palpation left mid to lower abdomen, no rebound, no guarding, soft, nontender, no hepatosplenomegaly Musculoskeletal: no cyanosis or clubbing, extremities motor strength 5/5 Skin: no rashes, warm and dry normal turgor Neurologic: PERRL, EOMI, accommodation nl, no face palsy, no dysarthria CN's II-XI intact bilaterally and moves all extremities Psychiatric: A+Ox3, euthymic affect Lymphatic: no cervical or axillary lymphadenopathy : deferred Results & Data Results & Data ([facility]) Vital Signs (Past 12 Hours) Vital Signs Temp Pulse Pulse Resp BP BP Pulse Ox 03/23/20 15:00 60 15 150/66 H 92 03/23/20 14:30 54 L 18 156/63 H 95 03/23/20 14:01 58 L 16 151/73 H 97 03/23/20 13:47 53 L 20 170/61 H 100 03/23/20 13:30 58 L 20 180/61 H 99 03/23/20 13:00 58 L 18 204/77 H 96 03/23/20 12:19 36.4 C L 72 22 196/92 H 97 Laboratory Results Short CBC 03/23/20 Range/Units 13:05 WBC 9.98 (4.8-10.8) K/uL Hgb 11.9 L (12.0-16.0) g/dL Hct 37.1 (37-47) % Plt Count 239 (130-400) K/uL BMP 03/23/20 13:05 Sodium 141 Potassium 3.2 L Chloride 110 H Carbon Dioxide 22 BUN 14 Creatinine 1.27 H Glucose 110 H Calcium 9.5 Liver Function 03/23/20 Range/Units 13:05 Total Bilirubin 0.9 (0.2-1) mg/dl AST 21 (15-37) U/L ALT 22 (12-78) U/L Alkaline Phosphatase 102 (45-117) U/L Albumin 3.3 L (3.4-5.0) gm/dl Urine 03/23/20 Range/Units 13:05 Urine Color Yellow Urine Appearance Clear (Clear) Urine pH 8.0 H (4.5-7.5) Ur Specific Nedrow 1.019 (1.000-1.030) Urine Protein Negative (Negative) Urine Glucose (UA) Negative (Negative) Diagnostic Findings CXR: FINDINGS: Cardiomediastinal and hilar silhouettes are within normal limits. There is no pneumothorax, pleural effusion, airspace consolidation or overt pulmonary edema. Minimal right shoulder rotator cuff calcific tendinosis. Bones of the chest appear grossly intact. Cholecystectomy. IMPRESSION: No acute process. KUB Xray: IMPRESSION: Stone fragments project over the mid left ureter and measure up to 9 mm. Medications Administered Discontinued Medications Hydromorphone HCl (Hydromorphone Inj 0.5 Mg/0.5 Ml Syr) 0.5 mg IV NOW STA Stop: 03/23/20 14:17 Last Admin: 03/23/20 14:40 Dose: 0.5 mg Documented by: [id number] Sodium Chloride (Nss 1000ml) 1,000 mls @ 999 mls/hr IV .Q1H1M ONE Stop: 03/23/20 13:31 Last Infusion: 03/23/20 13:58 Dose: 0 mls/hr Documented by: [id number] Admin: 03/23/20 12:58 Dose: 999 mls/hr Documented by: [id number] Metoclopramide HCl (Metoclopramide Hcl Inj 5 Mg/Ml 2 Ml Vial) 10 mg IV NOW STA Stop: 03/23/20 12:32 Last Admin: 03/23/20 12:58 Dose: 10 mg Documented by: [id number] Morphine Sulfate (Morphine Sulfate 4 Mg/Ml 1 Ml Carp\Vial) 4 mg IV NOW STA Stop: 03/23/20 12:32 Last Admin: 03/23/20 12:58 Dose: 4 mg Documented by: [id number] ECG Indication: chest pain Rate (beats per minute): 58 Rhythm: sinus bradycardia Code Status & VTE Plan Code Status Full Code VTE Prophylaxis Plan VTE Prophylaxis will be ordered: Yes Supervising Physician Co-Signing Physician Notes Attending addendum: Patient was seen and examined in medical telemetry unit She is a 60-year-old female with significant past medical history of gastric bypass and history of right ureteric stone with E. 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 (1) Chest pain Chest pain type: unspecified Qualified Code(s): R07.9 - Chest pain, unspecified
[2020-03-23] MEDS ORDERED: PROMETHAZINE 12.5 MG/50.5 ML BAG IV ONE (15:45)
[2020-03-23 15:50] LABS: D Dimer 650 ug/L FEU (0-500)
[2020-03-23 16:09] LABS: Creatine Kinase MB < 1.0 ng/ml (0.5-3.6); Troponin I 0.032 ng/ml (0-0.045)
[2020-03-23] MEDS ORDERED: OPTIRAY 320 125ml IV ONE (16:29)
[2020-03-23] MEDS ORDERED: ASPIRIN CHEW 324 MG PO STA (16:41)
--- NOTE | 2020-03-23 16:42 | CT Scan Report ---
CT ANGIOGRAM OF THE CHEST CLINICAL HISTORY: Atypical chest pain. COMPARISON STUDY: Chest x-ray dated 03/23/2020. TECHNIQUE: Following the IV administration of 120 cc of Optiray 320, CT angiogram of the chest was pe rformed from the upper abdomen to the thoracic inlet utilizing the pulmonary embolus protocol. Images are reviewed in the axial, sagittal, and coronal planes. 3-D MIPS images are created and assessed. I V contrast was administered without complication. A dose lowering technique was utilized adhering to the principles of ALARA. CT DOSE: 434.97 mGy.cm FINDINGS: Thyroid: Imaged portions of the thyroid gland are normal in size and attenuation. Thoracic aorta: The thoracic aorta is normal in caliber and demonstrates standard 3-vessel arch anato my. No dissection is seen. Pulmonary vasculature: The pulmonary trunk is normal in caliber. There are no filling defects identif ied in main, lobar, or segmental pulmonary branches to suggest pulmonary embolus. Heart: The heart is top normal in size and without pericardial effusion. Lungs and pleural spaces: There is no airspace consolidation or pleural effusion. Dependent atelectas is is seen at the lung bases. The trachea and central airways are clear. Mild peribronchial thickenin g is noted. Mediastinum: There is no mediastinal lymphadenopathy. Pau: Clear. Axillae: There is no axillary lymphadenopathy. Upper abdomen: Postoperative changes seen in the stomach. Partially visualized upper abdominal viscer a is otherwise grossly unremarkable. Skeletal structures: No lytic or blastic bony lesions are seen. IMPRESSION: 1. There is no evidence of pulmonary embolus in the main, lobar, or segmental pulmonary arteries. 2. There is no airspace consolidation or pleural effusion. 3. Mild peribronchial thickening suggests bronchitis/reactive airway disease. Clinical correlation wi ll be required. ACT 112: Negative or not required by law. Electronically signed by: Robert Fried M.D. 03/23/2020 4:41 PM
[2020-03-23] MEDS ORDERED: ALUMINUM/MAGNESIUM SUSP 30 ML UDC PO PRN (18:14)
[2020-03-23] MEDS ORDERED: ACETAMINOPHEN 325 MG TAB PO PRN (18:14)
[2020-03-23] MEDS ORDERED: MAGNESIUM HYDROXIDE SUSP 30 ML UDC PO PRN (18:14)
[2020-03-23] MEDS ORDERED: MoRPHine SULFATE 4 MG/ML 1 ML CARP\\VIAL IV PRN (18:14)
[2020-03-23] MEDS ORDERED: POLYETHYLENE (MIRALAX) 17 GM PACK PO PRN (18:14)
[2020-03-23] MEDS ORDERED: FLUTICASONE PROPIONATE NA SPR 16 GM BTL NAE PRN (18:14)
[2020-03-23] MEDS ORDERED: PROMETHAZINE HCL 12.5 MG in SODIUM CHLORIDE 0.9% 50 ML IV PRN (18:14)
[2020-03-23] MEDS ORDERED: POTASSIUM CHLORIDE CRTAB 20 MEQ TABCR PO ONE (19:00)
[2020-03-23] MEDS: POTASSIUM CHLORIDE / WTR 10 MEQ/100 ML PLCT IV SCH ×2 (19:56→21:12)
[2020-03-23] MEDS: SODIUM CHLORIDE 0.9% 1000ML 1,000 ML IV SCH (19:56)
--- NOTE | 2020-03-23 21:50 | Urology Consultation ---
Date of Consultation March 23, 2020 Assessment & Plan (1) Calculus of proximal left ureter: assess in am . Possible dischage for ureteroscopy Sunday or early next week if pain free . Stent in am if pain recurs . History of Present Illness Reason for Consultation: left ureteral stone Attending Physician: Akiko Chowdhury MD History of Present Illness 60 y/o female s/p lft renal eswl last sunday developed severe left flank pain earlier and had a Kub that shows 7 to 8 mm proximal. left stone . Pt denies fever . This evening her pain has resolved . She is on antibiotics . She has a normal wbc . Allergies Allergy/AdvReac Type Severity Reaction Status Date / Time ondansetron [From Zofran] AdvReac Unknown Vomiting Verified 03/23/20 14:24 Home Medications Medication Instructions Recorded Confirmed Type calcium carbonate [Calcium 500] 500 mg PO QAM 03/11/20 03/23/20 History colestipol [Colestid] 1 g PO BID 03/11/20 03/23/20 Rx ferrous sulfate 325 mg PO BID 03/11/20 03/23/20 History fluticasone propionate [Flonase 2 spray INTRANASAL DAILY PRN 03/11/20 03/23/20 History Allergy Relief] pantoprazole 40 mg PO QAM 03/11/20 03/23/20 History vitamin G96-wyxza acid 1 tab PO QAM 03/11/20 03/23/20 History hydrocodone-acetaminophen 1 tab PO Q6H PRN #15 tab 03/19/20 03/23/20 Rx Patient History Medical History Anemia History of anesthesia reaction WITH GASTRIC BYPASS SURGERY, TOOK LONG TIME TO WAKE UP ( [facility], 2011) History of chest pain October 10, 2018...chest pain, dizziness & nausea...rested and resolved - no re- occurence since History of high cholesterol History of kidney stones History of varicella Surgical History History of colonoscopy History of cystoscopy History of dilatation and curettage History of esophagogastroduodenoscopy (EGD) History of eye surgery LASIK - BOTH History of gastric bypass History of tubal ligation History of wisdom tooth extraction S/P laparoscopic cholecystectomy Family History Mother Diabetes Sister Diabetes Brother Diabetes Grandmother (Maternal) Diabetes Social History Smoking Status: Never smoker Second Hand Exposure: No; Hx Alcohol Use: Yes Alcohol type: wine Hx Substance Use: No Preferred Language: Albanian Communication Ability: Effective 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 Beliefs That Will Affect Care: None marital status: Current Living Situation: Alone Other Information That Helps Us Care for You: No Feels Safe at Home: Yes Safety Concerns: Feels Safe At This Time Assistive Devices: Glasses Review of Systems Review of Systems: All systems reviewed & are unremarkable except as noted in HPI & below Physical Exam Constitutional: WD/WN, vitals as above well developed and healthy appearing Eyes: PERRL, conjunctivae normal, anicteric sclerae ENMT: external ear and nose normal, oropharynx normal Neck: trachea midline, no thyromegaly Respiratory: normal respiratory effort Cardiovascular: Extremities: no edema Gastrointestinal (Abdomen): Inspection/Auscultation: abdomen normal to inspection Percussion/Palpation: abdomen soft Musculoskeletal: no cyanosis or clubbing, extremities motor strength 5/5 Skin: no rashes, warm and dry Neurologic: CN's II-XI intact bilaterally; no focal motor deficits Psychiatric: A+Ox3, euthymic affect Lymphatic: no cervical or axillary lymphadenopathy Results & Data ([facility]) Vital Signs (Past 12 Hours) Vital Signs Temp Pulse Pulse Pulse Resp BP BP 03/23/20 20:00 36.6 C 51 L 18 153/65 H 03/23/20 18:14 36.7 C 57 L 18 163/77 H 03/23/20 17:01 49 L 15 186/74 H 03/23/20 16:00 64 14 165/77 H 03/23/20 15:40 61 15 03/23/20 15:31 62 15 03/23/20 15:30 60 16 164/72 H 03/23/20 15:00 60 15 150/66 H 03/23/20 14:30 54 L 18 156/63 H 03/23/20 14:01 58 L 16 151/73 H 03/23/20 13:47 53 L 20 170/61 H 03/23/20 13:30 58 L 20 180/61 H 03/23/20 13:00 58 L 18 204/77 H 03/23/20 12:19 36.4 C L 72 22 196/92 H Pulse Ox 03/23/20 20:00 96 03/23/20 18:14 98 03/23/20 17:01 95 03/23/20 16:00 100 03/23/20 15:40 100 03/23/20 15:31 100 03/23/20 15:30 100 03/23/20 15:00 92 03/23/20 14:30 95 03/23/20 14:01 97 03/23/20 13:47 100 03/23/20 13:30 99 03/23/20 13:00 96 03/23/20 12:19 97 PG Care Time/CCT Total # of Minutes Spent Total Time Spent with Patient: Total time spent is greater than 50% in coordination of care (as documented) at patient's floor/unit and/or counseling patient:25 minutes Coding Level of Care Code 92799 Office/OBS Consult Lvl 2 Diagnoses Calculus of proximal left ureter N20.1
[2020-03-23] MEDS ORDERED: HEPARIN SOD 5,000 UNIT/0.5 ML VIAL SQ SCH (22:00)
[2020-03-23] MEDS: FERROUS SULFATE 325 MG TAB PO SCH (22:05)
--- NOTE | 2020-03-24 05:08 | Electrocardiogram Report ---
Test Reason : Blood Pressure : / mmHG Vent. Rate : 058 BPM Atrial Rate : 058 BPM P-R Int : 090 ms QRS Dur : 084 ms QT Int : 480 ms P-R-T Axes : 083 004 018 degrees QTc Int : 472 ms Poor data quality, interpretation may be adversely affected Sinus bradycardia with short VA Cannot rule out Anterior infarct , age undetermined Abnormal ECG When compared with ECG of 15-MAR-2020 12:32, VA interval has decreased Nonspecific T wave abnormality now evident in Inferior leads Confirmed by Samson Bradley ([id number]) on 03/24/2020 5:07:26 AM Referred By: REFERRED SELF Confirmed By:Samson Bradley
[2020-03-24] MEDS: SODIUM CHLORIDE 0.9% 1000ML 1,000 ML IV SCH (05:11)
[2020-03-24] MEDS: cefTRIAXone SODIUM 2,000 MG in DEXTROSE 5% 50 ML IV SCH (07:45)
[2020-03-24 08:45] LABS: Basophils # (auto) 0.02 K/uL (0-0.2); Basophils % (auto) 0.4 %; Eosinophils # (auto) 0.05 K/uL (0-0.5); Hematocrit (blood only) 34.1 % (37-47); Hemoglobin 10.9 g/dL (12.0-16.0); Lymphocytes # (auto) 1.51 K/uL (1.2-3.4); Lymphocytes % (auto) 30.9 %; Mean Corpuscular Hemoglobin 28.5 pg (25-34); Mean Corpuscular Volume 89.3 fL (80-100); Mean Platelet Volume 10.3 fL (7.4-10.4); Monocytes # (auto) 0.47 K/uL (0.11-0.59); Monocytes % (auto) 9.6 %; Neutrophils # (auto) 2.83 K/uL (1.4-6.5); Neutrophils % (auto) 58.1 %; Platelet Count 190 K/uL (130-400); RDW Coefficient of Variation 20.5 % (11.5-14.5); RDW Standard Deviation 65.5 fL (36.4-46.3); Red Blood Count 3.82 M/uL (4.2-5.4); White Blood Count 4.88 K/uL (4.8-10.8)
[2020-03-24] MEDS: FERROUS SULFATE 325 MG TAB PO SCH ×2 (09:08→20:50)
[2020-03-24 09:15] LABS: Albumin Globulin Ratio 0.9 (0.9-2); Albumin Level 2.9 gm/dl (3.4-5.0); Bilirubin,Total 0.5 mg/dl (0.2-1); Creatinine Clr Calc Pharmacy 83.5 ml/min; Est GFR (African American) 101.8; Est GFR (Non-African American) 87.9; Globulin 3.4 gm/dl (2.5-4.0); Potassium 3.6 mmol/L (3.5-5.1); Total Protein 6.3 gm/dl (6.4-8.2)
--- NOTE | 2020-03-24 09:33 | XRay Report ---
KUB HISTORY: Left ureteral stone COMPARISON: KUB 03/23/2020. FINDINGS: The bowel gas pattern is unremarkable. There are no dilated loops of small bowel to suggest an obstruction. Cholecystectomy. Suture material within the left upper quadrant and right midabdome n. No change in a 9 mm mid left ureteral stone at the level of L4. No additional renal calculi identi fied. No pneumoperitoneum or pneumatosis. IMPRESSION: No change in the 9 mm mid left ureteral stone. ACT 112: Negative or not required by law. Electronically signed by: Juan Carlos Herrera M.D. 03/24/2020 9:31 AM
--- NOTE | 2020-03-24 09:50 | Urology Progress Note ---
Date of Service March 24, 2020 Assessment & Plan (1) Calculus of proximal left ureter: 60 yo F s/p Left ESWL admitted with left renal colic secondary to 9 mm left ureteral stone. - Afebrile, labs reviewed - creatinine improved to 0.75 today, no leukocytosis - UC&S and BCx pending - continue antibiotics and follow cultures - Reports recurrence of pain this AM - KUB shows unchanged 9 mm left ureteral stone - Keep NPO - Strain urine - Discussed options for stone management. She would like to proceed with surgical intervention today. - Discussed intervention with patient's hospitalist, Dr. Esquivel - pt medically stable for intervention today. Will proceed. - Findings reviewed with Dr. James. Given her left renal colic in the context of an obstructing 9 mm left ureteral stone, will proceed with OR for cystoscopy, Left retrograde pyelogram, left ureteroscopy, laser lithotripsy, and left stent placement. - Risks and benefits to be reviewed with patient by Dr. James. OR notified. Preoperative CXR and EKG on chart. COVID test negative on 03/23/20. Will continue with IV Ceftriaxone preoperatively. - She is agreeable with plan, all questions answered. ATTENDING NOTE: Agree with above. Independently evaluated and assessed. Agree with findings. Discussed options. Risks and benefits discussed at length for procedure. These include bleeding, infection, injury to surrounding tissues or organs, and risks associated with anesthesia. Patient states understanding and agrees to proceed. Will sign consent and schedule. Plan for Left Ureteroscopy with laser lithotripsy. Admission and Anticipated Discharge Date Admission Date: March 23, 2020 Subjective Pt seen and examined at bedside this AM. Awake, alert and sitting up in bed. No issues overnight. Denies stone passage. Reports left flank/abdominal pain recurred this morning, rates as 6/10. Morphine 4 mg just administered by RN @0930. No suprapubic pain. Voiding without difficulty. No dysuria or hematuria. No fever, chills, nausea or vomiting. Of note, she c/o chest pain yesterday. She had elevated D-dimer, CTA negative for PE. Serial Troponin within normal limits. No chest pain or shortness of breath at present. Chart review: Afebrile, creatinine 0.75, WBC 4.88, KUB today showing no change in the 9 mm mid left ureteral stone. UC&S and BCx pending. ECHO today - EF 55- 60%, left ventricular wall motion is normal Review of Systems Constitutional: as per Subjective / HPI Respiratory: as per Subjective / HPI Cardiovascular: as per Subjective / HPI Gastrointestinal: as per Subjective / HPI Genitourinary: as per Subjective / HPI Physical Exam Constitutional: well developed and well nourished; no acute distress and not ill appearing Respiratory: normal respiratory effort and able to speak in complete sentences; no respiratory distress and no labored breathing Cardiovascular: Extremities: no pedal edema Gastrointestinal (Abdomen): Inspection/Auscultation: abdomen normal to inspection; abdomen not distended Percussion/Palpation: + abdomen tender (mild tenderness generalized on left, no rebound or guarding) and abdomen soft; no guarding Musculoskeletal: Head/Neck/Chest: normocephalic and head atraumatic Extremities: extremities normal to inspection Skin: no rashes, warm and dry Neurologic: moves all extremities and awake Psychiatric: Orientation: alert and oriented x 3 Genitourinary: no CVA tenderness Results & Data ([facility]) Vital Signs (Past 12 Hours) Vital Signs Temp Pulse Pulse Resp BP Pulse Ox 03/24/20 07:30 48 L 03/24/20 07:15 36.6 C 58 L 19 147/75 H 98 03/24/20 04:00 36.7 C 54 L 18 123/75 98 03/24/20 02:04 46 L 03/24/20 00:00 37.0 C 59 L 18 137/78 100 PG Care Time/CCT Total # of Minutes Spent Total Time Spent with Patient: Total time spent is greater than 50% in coordination of care (as documented) at patient's floor/unit and/or counseling patient: Coding Level of Care Code 18315 Subseq Hosp Care Lvl 3 Diagnoses Calculus of proximal left ureter N20.1
[2020-03-24] MEDS: CALCIUM CARBONATE 1250MG TAB PO SCH (12:45)
[2020-03-24] MEDS: TAMSULOSIN HCL 0.4 MG CAP PO SCH (12:45)
[2020-03-24] MEDS: PANTOprazole 40 MG TAB PO SCH (12:45)
[2020-03-24] MEDS: VITAMIN B COMPLEX TAB PO SCH (12:46)
[2020-03-24] MEDS ORDERED: MIDAZOLAM HCL 1 MG/ML 2ML VIAL ONE (13:53)
[2020-03-24] MEDS ORDERED: fentaNYL citrate 100 MCG/2 ML VIAL ONE (13:53)
[2020-03-24] MEDS ORDERED: PROMETHAZINE HCL 6.25 MG in SODIUM CHLORIDE 0.9% 50 ML IV PRN (14:32)
[2020-03-24] MEDS ORDERED: ONDANSETRON INJ 2 MG/ML 2 ML VIAL IV PRN (14:32)
[2020-03-24] MEDS ORDERED: ATROPINE SULFATE 0.1 MG/ML 10ML SYR IV PRN (14:32)
[2020-03-24] MEDS ORDERED: ePHEDrine sulfate 50 MG/ML AMP IV PRN (14:32)
[2020-03-24] MEDS ORDERED: fentaNYL citrate 100 MCG/2 ML VIAL IV PRN (14:32)
--- NOTE | 2020-03-24 14:32 | Anesthesiology Consultation ---
Date of Service March 24, 2020 Assessment & Plan Chart Review Chart Review: Acceptable Risk for Surgery and Patient NOT seen in Pre Admission Testing Consults Requested none ASA ASA3 Proposed Anesthesia Anesthesia Type: General Risk / Benefits Reviewed With: PT / POA / Parent / Guardian, Accepts Plan and Informed Consent Obtained History Surgery Operation Date: 03/24/20 11:55 Proposed Procedures p Cystoscopy, Left Ureteroscopy, Laser Lithotripsy, Left Stent Placement - Glenn James, DO Height/Weight Height: 5 ft 1 in Weight: 90 kg Allergies Allergy/AdvReac Type Severity Reaction Status Date / Time ondansetron [From Zofran] AdvReac Unknown Vomiting Verified 03/23/20 14:24 Medications Home Medications Medication Instructions Recorded Confirmed Last Taken calcium carbonate [Calcium 500] 500 mg PO QAM 03/11/20 03/23/20 Unknown colestipol [Colestid] 1 g PO BID 03/11/20 03/23/20 Unknown ferrous sulfate 325 mg PO BID 03/11/20 03/23/20 Unknown fluticasone propionate [Flonase 2 spray INTRANASAL DAILY PRN 03/11/20 03/23/20 Unknown Allergy Relief] pantoprazole 40 mg PO QAM 03/11/20 03/23/20 Unknown vitamin M43-[id number] acid 1 tab PO QAM 03/11/20 03/23/20 Unknown hydrocodone-acetaminophen 1 tab PO Q6H PRN #15 tab 03/19/20 03/23/20 Unknown Active Medications Generic Name Dose Route Start Last Admin Trade Name Freq PRN Reason Stop Dose Admin Calcium Carbonate 1,250 mg 03/24/20 09:00 03/24/20 12:45 Calcium Carbonate 1250mg Tab PO 04/23/20 08:59 Not Given QAM ARAM Ferrous Sulfate 325 mg 03/23/20 21:00 03/24/20 09:08 Ferrous Sulfate 325 Mg Tab PO 04/22/20 20:59 Not Given BID ARAM Ceftriaxone Sodium 2,000 mg/ 70 mls @ 100 mls/hr 03/24/20 09:00 03/24/20 08:40 Dextrose IV 04/03/20 08:59 Infused DAILY ARAM Infusion Protocol Promethazine HCl 12.5 mg/ 50.5 mls @ 202 mls/hr 03/23/20 18:14 03/24/20 13:05 Sodium Chloride IV 04/22/20 18:13 Infused Q6H PRN Infusion Nausea And Vomiting Morphine Sulfate 4 mg 03/23/20 18:14 03/24/20 09:35 Morphine Sulfate 4 Mg/Ml 1 Ml Carp\Vial IV 04/06/20 18:13 4 mg Q4H PRN Administration Severe Pain Pantoprazole Sodium 40 mg 03/24/20 09:00 03/24/20 12:45 Pantoprazole 40 Mg Tab PO 04/23/20 08:59 Not Given QAM ARAM Tamsulosin HCl 0.4 mg 03/24/20 09:00 03/24/20 12:45 Tamsulosin Hcl 0.4 Mg Cap PO 04/23/20 08:59 Not Given QAM ARAM Vitamin B Complex 1 tab 03/24/20 09:00 03/24/20 12:46 Vitamin B Complex Tab PO 04/23/20 08:59 Not Given QAM ARAM NPO Date Last Intake of Fluids: 03/23/20 Time Last Intake of Fluids: 23:45 Date Last Intake of Solids: 03/22/20 Time Last Intake of Solids: 22:00 Past Medical History Medical History Anemia History of anesthesia reaction WITH GASTRIC BYPASS SURGERY, TOOK LONG TIME TO WAKE UP ( JULI[facility]N, 2011) History of chest pain October 10, 2018...chest pain, dizziness & nausea...rested and resolved - no re- occurence since History of high cholesterol History of kidney stones History of varicella Exercise / Class Metabolic Activity II 4-5 Yardwork/Stairs/Walk up hill Past Family History Family History Mother Diabetes Sister Diabetes Brother Diabetes Grandmother (Maternal) Diabetes Past Surgical History Surgical History History of colonoscopy History of cystoscopy History of dilatation and curettage History of esophagogastroduodenoscopy (EGD) History of eye surgery LASIK - BOTH History of gastric bypass History of tubal ligation History of wisdom tooth extraction S/P laparoscopic cholecystectomy Past Anesthesia History No Hx of Anesthesia Complications and No Family Hx of Anesthesia Complications History of PONV No Hx of PONV and No Hx of Motion Sickness Social History Smoking Status: Never smoker Hx Alcohol Use: Yes Alcohol type: wine alcohol intake frequency: holidays/special occasions only Hx Substance Use: No substance use type: does not use Physical Exam Vital Signs Last Vital Signs Temp 36.9 C 03/24/20 14:14 Pulse 53 L 03/24/20 14:14 Resp 18 03/24/20 14:14 BP 185/74 H 03/24/20 14:14 Pulse Ox 97 03/24/20 14:14 ENMT Mouth: no dentition abnormality Thyromental Distance: > or= 3.5 Finger Breadths Mallampati Class: II Neck normal visual inspection Respiratory normal respiratory effort Auscultation: lungs clear to auscultation bilaterally Cardiovascular Rate/Rhythm: regular rate and regular rhythm Psychiatric Orientation: alert Testing Laboratory Results 03/24/20 08:28 03/24/20 08:28 Urine Color Yellow 03/23/20 13:05 Urine Appearance Clear (Clear) 03/23/20 13:05 Urine pH 8.0 (4.5-7.5) H 03/23/20 13:05 Ur Specific [place] 1.019 (1.000-1.030) 03/23/20 13:05 Urine Protein Negative (Negative) 03/23/20 13:05 Urine Glucose (UA) Negative (Negative) 03/23/20 13:05 Urine Ketones 2+ (Negative) H 03/23/20 13:05 Urine Nitrite Negative (Negative) 03/23/20 13:05 Ur Leukocyte Esterase 1+ (Negative) H 03/23/20 13:05 Urine WBC (Auto) 10-30 /hpf (0-5) H 03/23/20 13:05 Urine RBC (Auto) 10-30 /hpf (0-4) H 03/23/20 13:05 U Hyaline Cast (Auto) 1-5 /lpf (0-5) 03/23/20 13:05 U Epithel Cells (Auto) >30 /lpf (0-5) H 03/23/20 13:05 Urine Bacteria (Auto) Negative (Negative) 03/23/20 13:05 03/23/20 13:05 Urine Culture - Preliminary Urine,Clean Catch Pin-point growth present, reincubating.
[2020-03-24] MEDS ORDERED: DEXAMETHASONE SOD INJ 4 MG/ML VIAL ONE (14:46)
[2020-03-24] MEDS ORDERED: PROPOFOL IV EMULSION 10 MG/ML 20 ML VIAL IV ONE (14:46)
[2020-03-24] MEDS ORDERED: LIDOCAINE HCL 2% 2 ML VIAL/AMP(20MG/ML) INFIL ONE (14:46)
--- NOTE | 2020-03-24 15:15 | Operative Report ---
PG Post Operative Report Pre & Post Diagnosis Operation Date: 03/24/20 11:55 Pre-Op Diagnosis: Left Kidney Stone, Renal Colic Post-Op Diagnosis: Left Kidney Stone, Renal Colic I identified the patient and participated in the time-out.: Yes Procedure Operation Date: 03/24/20 11:55 Actual Procedures p Cystoscopy, Left Ureteroscopy, Laser Lithotripsy with Basket extraction, Ureteral dilation, Left Stent Placement with retrograde pyelogram(Left) - Glenn James DO Surgeon Glenn James, II, DO Roller None Estimated Blood Loss 1 Findings Consistent with Post-Op Diagnosis Stone destroyed to dust and small fragments and larger fragments removed. Significant narrowing of ureter at proximal and distal regions Specimens Stone Fragments Drains 6 Fr Multilength without tether Anesthesia Type General Complications none Disposition Disposition: Recovery Room Indications Patient with bothersome stones. Risks and benefits discussed at length. Description of Procedure Patient was consented and brought back to the operating room. Patient was placed under anesthesia in the supine position and moved to the dorsal lithotomy position. Patient was prepped and draped in the regular sterile fashion. A time out was completed identifying the correct patient and procedure. A 30degree Cystoscope was placed into the bladder and the entire bladder was examined. The UO's were identified. The UO was cannulized with a catheter and a retrograde pyelogram was completed. A wire was then placed. The ureter was dilated. A ureteral access sheath and second safety wire was placed. The flexible ureteroscope was taken into the ureter. The entire ureter and renal pelvis were examined. The stones were identified. A laser fiber was selected and the stones were pulverized to dust and small fragments. Larger fragments were grasped and removed and sent for analysis. The entire area was once again examined. No residual large fragments or areas of concern were noted. The scope was slowly removed with the wire left in place. Contrast was placed through the scope for a pyelogram to assist in stent placement. The entire ureter was examined as the scope was slowly removed. No obstructions or other areas of concern were noted. With the wire in place, a 6 Fr Double J stent was placed. It was confirmed with fluoroscopy. With the stent in place, the bladder was emptied. The scope was removed. The patient was cleaned, aroused from anesthesia, and transferred to the pacu in stable condition having tolerated the procedure well with no complications. I was present and participated in all aspects of the procedure. The patient will be monitored in the PACU until transferred. I attest to the content of the Intraoperative Record and any orders documented therein. Any exceptions are noted below.
[2020-03-24] MEDS ORDERED: DIATRIZOATE MEGLUMINE 30% 100ML VIAL INSTIL ONE (15:16)
--- NOTE | 2020-03-24 15:31 | Fluoroscopy Report ---
FL retrograde includes kub CLINICAL HISTORY: LEFT RETROGRADE COMPARISON STUDY: None. FLUOROSCOPY TIME: 1 minute and 8 seconds. FINDINGS: 4 fluoroscopic spot images of the abdomen demonstrate placement of a left ureteral stent wh ich appears in good position. There is also retrograde opacification of the left renal collecting sys tem. IMPRESSION: Fluoroscopy provided for left ureteral stent placement. ACT 112: Negative or not required by law. Electronically signed by: Juan Carlos Herrera M.D. 03/24/2020 3:30 PM
[2020-03-24] MEDS: HYDROCODONE/ACETAMOPHEN 5/325MG TAB PO PRN (16:48)
--- NOTE | 2020-03-24 18:10 | Hospitalist Progress Note ---
Date of Service March 24, 2020 Assessment & Plan (1) Ureterolithiasis: presented with L ureteral stone fragements up to 9mm S/P ESWL by Dr. Montiel 03/19 presnted with renal colic, KAREN, appreciate input from Urology s/p Left uretric stent placement pt reports resolution of left flank pain (2) Chest pain: no further episode serial troponin negative ECHO no wall motion abnormality (3) Acute hypokalemia: (4) KAREN (acute kidney injury): due to obstructed ureteric stone resolved cr 1.27 renal function improved to 0.75 with Iv hydration (5) Anemia: H/H stable 11.9/37.1 continue iron supplement and b12 (6) DVT prophylaxis: SCD and Teds Disposition : plan to dc home in am if medically stable Admission and Anticipated Discharge Date Admission Date: March 23, 2020 Subjective flank pain has much improved after ureteric stent placement has mild discomfort with urination , no gross hematuria no nause or vomiting , no fever or chills Review of Systems Review of Systems: All systems reviewed & are unremarkable except as noted in HPI & below Physical Exam Constitutional: WD/WN, vitals as above Eyes: + anicteric sclerae ENMT: external ear and nose normal, oropharynx normal Respiratory: normal respiratory effort, lungs clear to auscultation Cardiovascular: RRR, no murmur, no edema Gastrointestinal (Abdomen): Inspection/Auscultation: normal bowel sounds Percussion/Palpation: abdomen soft Neurologic: PERRL, EOMI, accommodation nl, no face palsy, no dysarthria Psychiatric: A+Ox3, euthymic affect Results & Data Results & Data ([facility]) Vital Signs (Past 12 Hours) Vital Signs Temp Pulse Pulse Pulse Pulse Resp BP 03/24/20 17:20 47 L 03/24/20 17:14 36.6 C 47 L 18 179/80 H 03/24/20 16:43 36.8 C 48 L 16 185/82 H 03/24/20 16:15 36.7 C 63 16 180/85 H 03/24/20 15:57 36.4 C L 50 L 16 185/74 H 03/24/20 15:45 70 18 178/67 H 03/24/20 15:35 54 L 14 177/68 H 03/24/20 15:28 36.2 C L 68 15 191/89 H 03/24/20 14:14 36.9 C 53 L 18 185/74 H 03/24/20 11:02 36.8 C 54 L 18 194/82 H 03/24/20 07:30 48 L 03/24/20 07:15 36.6 C 58 L 19 147/75 H Pulse Ox 03/24/20 17:20 03/24/20 17:14 94 03/24/20 16:43 96 03/24/20 16:15 93 03/24/20 15:57 97 03/24/20 15:45 98 03/24/20 15:35 100 03/24/20 15:28 100 03/24/20 14:14 97 03/24/20 11:02 99 03/24/20 07:30 03/24/20 07:15 98 (1) Chest pain Chest pain type: unspecified Qualified Code(s): R07.9 - Chest pain, unspecified
[2020-03-24] MEDS ORDERED: hydrALAZINE HCL 20 MG/ML VIAL IV STA (18:39)
[2020-03-24] MEDS ORDERED: hydrALAZINE HCL 20 MG/ML VIAL IV PRN (18:39)
--- NOTE | 2020-03-24 21:26 | Electrocardiogram Report ---
Test Reason : Blood Pressure : / mmHG Vent. Rate : 055 BPM Atrial Rate : 055 BPM P-R Int : 120 ms QRS Dur : 100 ms QT Int : 436 ms P-R-T Axes : 067 055 030 degrees QTc Int : 417 ms Sinus bradycardia Incomplete right bundle branch block Anterior infarct (cited on or before 23-MAR-2020) Abnormal ECG When compared with ECG of 23-MAR-2020 13:39, [place] interval has increased Confirmed by Samson Bradley ([id number]) on 03/24/2020 9:26:07 PM Referred By: REFERRED SELF Confirmed By:Samson Bradley
[2020-03-25] MEDS: HYDROCODONE/ACETAMOPHEN 5/325MG TAB PO PRN (01:44)
[2020-03-25] MEDS: FERROUS SULFATE 325 MG TAB PO SCH (08:10)
[2020-03-25] MEDS: TAMSULOSIN HCL 0.4 MG CAP PO SCH (08:10)
[2020-03-25] MEDS: VITAMIN B COMPLEX TAB PO SCH (08:11)
[2020-03-25] MEDS: CALCIUM CARBONATE 1250MG TAB PO SCH (08:11)
[2020-03-25] MEDS: PANTOprazole 40 MG TAB PO SCH (08:11)
[2020-03-25] MEDS: cefTRIAXone SODIUM 2,000 MG in DEXTROSE 5% 50 ML IV SCH (08:25)
--- NOTE | 2020-03-25 08:58 | Discharge Summary ---
Date of Service March 25, 2020 Admission HPI Per Admitting Provider This is a 60 year old F who has a significant PMH of gastric bypass who was hospitalized December 2019 secondary to right ureteral stone, E. coli bacteremia and urosepsis. She required stent placement by urology. During his hospitalization she did become anemic requiring transfusion. She also underwent EGD which revealed grossly stable from prior gastric bypass which was removed. She was placed on ferrous sulfate if hemoglobin has trended up since discharge. She has been following outpt with [facility]. An 8mm L ureteral stone was discovered and she opted to undergo ESWL on 03/[address] Montiel. She was doing well until yesterday afternoon when she developed a dull pain to her left flank. Pain progressed that evening, but she was able to go to sleep last night. When she awoke this morning she had progressively worse left flank pain, waxed and waned, when present was described as sharp, 10/10, made improvement with walking and movement, and worsen with rest. Symptoms were associated with nausea and she had episode of vomiting last evening. She has not had anything to eat since last evening and has been drinking water today. Drinking water has made her nauseated. While in ED for left flank pain did improve with IV analgesia; however, when she returned from chest x-ray she developed substernal chest pain that radiated to her back. Pain would come and go and when present was a 5/10. Currently her pain is absent. She described it as a squeezing sensation. Symptoms made better with leaning forward. She denied any more symptoms with deep breathing or musculoskeletal movement. She did have associated clamminess but denies cassie diaphoresis, nausea, vomiting, palpitations, lightheadedness, dizziness or syncope. She denies any recent fever, chills, sweats, shortness breath at rest, ROD, abdominal pain, dysuria, increased urgency or frequency with urination, hematuria, melena or hematochezia. In ED patient remained hemodynamically stable. Lab work notable for hemoglobin 11.9, moderate 37.1, WBC 9.98k, K3.2, chloride 110, creatinine 1.27, glucose 110, urinalysis +1 blood, +1 leukocyte esterase. COVID-19 negative. Chest x-ray negative for acute abnormality. Patient developed chest pain while in ED. Initial EKG without acute ST change. CK-MB unremarkable. Troponin detectable at 0.032 but within limits. D-dimer elevated. Chest CTA ordered In ED she received 2 g IV Rocephin, IV morphine and Dilaudid and Reglan. Principal Diagnosis KIDNEY STONE S/P URETERIC STENT PLACEMENT Discharge Exam Constitutional WD/WN, vitals as above Eyes + anicteric sclerae ENMT external ear and nose normal, oropharynx normal Respiratory normal respiratory effort, lungs clear to auscultation Cardiovascular RRR, no murmur, no edema Gastrointestinal (Abdomen) Inspection/Auscultation: normal bowel sounds Percussion/Palpation: abdomen soft Neurologic PERRL, EOMI, accommodation nl, no face palsy, no dysarthria Psychiatric A+Ox3, euthymic affect Discharge Data Allergies Allergy/AdvReac Type Severity Reaction Status Date / Time ondansetron [From Zofran] AdvReac Unknown Vomiting Verified 03/23/20 14:24 Consultations 03/23/20 14:53 ED Decision to Admit Stat 03/23/20 15:53 Consult Urology Routine Procedures Performed Operation Date: 03/24/20 11:55 Actual Procedures p Cystoscopy, Left Ureteroscopy, Laser Lithotripsy with Basket extraction, Ureteral dilation, (Left) - Glenn James DO s Left Stent Placement(Left) - Glenn James DO Ordered Studies 03/23/20 16:17 CT angio chest PE protocol Stat 03/24/20 14:00 FL retrograde includes kub Routine Hospital Course (1) Ureterolithiasis: presented with L ureteral stone fragements up to 9mm S/P ESWL by Dr. Montiel 03/19 presnted with renal colic, KAREN, acute renal failure resolved afer IvF appreciate input from Urology s/p Left uretric stent placement pt reports resolution of left flank pain had no acute event overnight no complain of flank pain , no fever or chills d/w Urology -stable to be discharged home today cont PO FLomax till ureteric stent is removed , PO Cipro for 5 days Urology follow up in 1 week for ureteric stent removal (2) Chest pain: no further episode serial troponin negative ECHO no wall motion abnormality (3) Acute hypokalemia: corrected (4) KAREN (acute kidney injury): due to obstructed ureteric stone resolved admission cr was 1.27 renal function improved to 0.75 with Iv hydration (5) Anemia: H/H stable 11.9/37.1 continue iron supplement and b12 (6) DVT prophylaxis: SCD and Teds Disposition : stable to be discharged home today Total Time Total Time Spent Total Time Spent (In Minutes): 35 mins Total Time Includes: Examination of the Patient, Discharge Planning, Medication Reconciliation and Communication With Other Providers Discharge Plan Discharge Items Patient Disposition: Home - Self-Care Reason For Visit: KIDNEY TONE, RENAL COLIC, CHEST PAIN Discharge Diagnosis: KIDNEY STONE S/P URETERIC STENT PLACEMENT Activity: Resume your previous activity Non-emergency contact: Primary Care Provider Call non-emergency contact if: you have any medication questions Follow-up/Referrals: Glenn James DO [Physician] - (FOLLOW UP WITH UROLOGY FOR URETERIC STENT REMOVAL ) Navya Sarabia DO [Primary Care Provider] - (Hospital follow up in a week ) Diet: Regular Addtl Attending Provider Instructions: FOLLOW UP WITH UROLOGY IN CLINIC in 1 week FOR STENT REMOVAL -Office will call you with appointment COMPLETE 5 MORE DAYS OF ANTIBIOTIC -CIPROFLOXACIN Pending Studies at Discharge: No Stand-Alone Forms: My [facility] Benefits, Smoking Cessation Medications and DC Order Prescriptions: New tamsulosin 0.4 mg Capsule 0.4 mg PO QAM 7 Days Qty: 7 RF: 0 ciprofloxacin HCl [Cipro] 500 mg tablet 500 mg PO BID 5 Days Qty: 10 RF: 0 pantoprazole 40 mg tablet,delayed release (DR/EC) 40 mg PO QAM 30 Days Qty: 30 RF: 3 ferrous sulfate 325 mg (65 mg iron) tablet 325 mg PO BID 30 Days Qty: 60 RF: 0 Continued calcium carbonate [Calcium 500] 500 mg calcium (1,250 mg) Tablet 500 mg PO QAM RF: 0 vitamin M85-zwlno acid 500-400 mcg Tablet 1 tab PO QAM RF: 0 fluticasone propionate [Flonase Allergy Relief] 50 mcg/actuation spray,suspension 2 spray intranasal DAILY PRN (Reason: Allergy Symptoms) RF: 0 hydrocodone-acetaminophen 5-325 mg tablet 1 tab PO Q6H PRN (Reason: pain) Qty: 15 RF: 0 Discharge Orders: Discharge Order (Routine); Ordered 03/25/20 Ordered By: Diane Esquivel Admission Data Admit Date/Time: 03/23/20 15:07 Attending Provider: Diane Esquivel Admit Provider: Akiko Chowdhury Primary Care Provider: Navya Sarabia Other Providers: Akiko Chowdhury ; Watler Martins Other Interventions: Discharge Summary Assessment (RN) Last Done: 03/25/20 09:40
[2020-04-01 03:47] LABS: Component 2 DNR; Source RENAL
== END 2020-03-25 11:00 | disposition home or self-care (01) ==
LOC: ED 12:09 → 2N 12:09 → SUATTDRO 15:07 → 2N 17:13